=== PATIENT | male | born 1960 | race American Indian/Alaskan Native ===

== ENCOUNTER 2019-02-07 01:01 | Emergency (ER) | payer OTHER ==
[~2019-02-07] VITALS: Ht 154.9 cm; Wt 49.4 kg
[2019-02-07 01:11] VITALS: BP 111/61
--- NOTE | 2019-02-07 01:33 | ER.PDOC ---
General Chief Complaint: Requesting Medical Care Stated Complaint: CATH CHANGE Time seen by MD: 01:29 Source: patient Exam Limitations: no limitations History of Present Illness Initial Comments For Wilson catheter change Associated Symptoms: Retention Sexual History: Non-contributory Allergies: Coded Allergies: No Known Allergies (Unverified , 08/29/13) Home Meds No Active Prescriptions or Reported Meds Past Medical History Medical History: other Surgical History: no surgical history Social History Drug Use: none Review of Systems Constitutional: no symptoms reported Respiratory: no symptoms reported Cardiovascular: no symptoms reported Gastrointestinal: no symptoms reported Genitourinary: see HPI All Other Systems: Reviewed and Negative Physical Exam General Appearance: No Apparent Distress, WD/WN Neck: nml inspection, non-tender Cardiovascular/Respiratory: Regular Rate, Rhythm, No M/R/G, Normal Peripheral Pulses, No JVD, Normal Breath Sounds, No Respiratory Distress Abdomen: Normal Bowel Sounds, Non Tender, Soft, No Organomegaly, No Pulsatile Mass Back: nml inspection Extremities: Normal Range of Motion, Non-Tender, Normal Inspection, No Pedal Edema, No Calf Tenderness, Normal Capillary Refill 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 It was changed 2 weeks ago. Still too early to change it. Course Sepsis Screening Results: Posi: POSITIVE SEPSIS RISK Duration or Total Time Spent w: 10 Sepsis Infection Criteria Pres: None Departure Time of Disposition: 01:32 Disposition: 01 HOME, SELF-CARE Impression: Primary Impression: Urinary retention Condition: Stable Referrals: PCP,UNKNOWN (PCP) PRIMARY CARE PROVIDER Additional Instructions: F/U with your Urologist as needed Scripts No Active Prescriptions or Reported Meds Duration or Time Spent with Pa: 20 mins DEMETRI ARCOS MD Feb 07, 2019 01:33
== END 2019-02-07 01:41 | disposition home or self-care (01) ==
LOC: ER 01:01
DX: R33.9 Retention of urine, unspecified (principal)
CPT/HCPCS: 99281

== ENCOUNTER 2019-02-09 22:26 | Emergency (ER) | payer OTHER ==
[~2019-02-09] VITALS: Ht 154.9 cm; Wt 49.4 kg
[2019-02-09 22:38] VITALS: BP 126/87
--- NOTE | 2019-02-09 22:38 | NUR ---
ARRIVAL PATIENT PRESENTS STATING THAT HIS MCKEON CATHETER IS NOT DRAINING. STATES THAT HE HAS NOT HAD ANY OUTPUT FOR OVER 6 HOURS. REPORTS LOWER ABDOMINAL PAIN, PRESSURE. STATES THAT HE TOOK IBUPROFEN ~7-8PM AND HAS NOT HAD ANY PAIN RELIEF. AMBULATORY WITH STEADY GAIT. VSS. MD JOSSELYN NOTIFIED.
[2019-02-09 23:30] VITALS: BP 114/77
--- NOTE | 2019-02-09 23:51 | ER.PDOC ---
General Chief Complaint: Requesting Medical Care Stated Complaint: MALE Time seen by MD: 23:47 Source: patient Exam Limitations: no limitations History of Present Illness Initial Comments Wilson Catheter not draining. Timing/Duration: this evening Severity/Quality: moderate Associated Symptoms: Retention Allergies: Coded Allergies: No Known Allergies (Unverified , 08/29/13) Home Meds No Active Prescriptions or Reported Meds Past Medical History Medical History: COPD Surgical History: tonsillectomy Social History Drug Use: none Review of Systems Constitutional: no symptoms reported Respiratory: no symptoms reported Cardiovascular: no symptoms reported Gastrointestinal: no symptoms reported Genitourinary: see HPI All Other Systems: Reviewed and Negative Physical Exam General Appearance: No Apparent Distress, WD/WN Neck: nml inspection, non-tender Cardiovascular/Respiratory: Regular Rate, Rhythm, No M/R/G, Normal Peripheral Pulses, No JVD, Normal Breath Sounds, No Respiratory Distress Abdomen: Normal Bowel Sounds, Non Tender, Soft, No Organomegaly, No Pulsatile Mass Male Genitals: Other (suprapubic fullness) Extremities: Normal Range of Motion, Non-Tender, Normal Inspection, No Pedal Edema, No Calf Tenderness, Normal Capillary Refill 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 Scripts No Active Prescriptions or Reported Meds Duration or Time Spent with Pa: 30 mins DEMETRI ARCOS MD Feb 09, 2019 23:51
[2019-02-10 00:30] VITALS: BP 103/77
== END 2019-02-10 00:33 | disposition home or self-care (01) ==
LOC: ER 22:26
DX: R33.9 Retention of urine, unspecified (principal); J44.9 Chronic obstructive pulmonary disease, unspecified; Z90.89 Acquired absence of other organs
CPT/HCPCS: 51702; 99284; 99285

== ENCOUNTER 2019-03-24 15:13 | Emergency (ER) | payer OTHER ==
[~2019-03-24] VITALS: Ht 154.9 cm; Wt 49.4 kg
[2019-03-24 15:38] VITALS: BP 103/72
[2019-03-24] MEDS ORDERED: DUO 0.5-3(2.5) MG/3 ML IH STA (16:02)
--- NOTE | 2019-03-24 16:20 | ER.PDOC ---
General Chief Complaint: Trunk Pain/Injury Stated Complaint: MALE Time seen by MD: 15:50 Source: patient Exam Limitations: no limitations History of Present Illness Initial Comments about 7-10 days ago, pt hit L posterior ribs on post attached to car frame while getting into a car. Was sore for a few days, hurt some with deep breaths. 5 days ago pt had hard coughing spell, and felt a 'pop' in same area of L lower/posterior ribs. Hurts with breathing, pain has not gone away. Denies fever, swelling in legs or feet, productive sputum. Context: blow Location of pain/injury: mid back Quality/Severity: moderate Allergies: Coded Allergies: No Known Allergies (Unverified , 08/29/13) Home Meds No Active Prescriptions or Reported Meds Past Medical History Medical History: COPD Surgical History: no surgical history Social History Alcohol Use: none Drug Use: none Results/Orders Results/Orders Orders - ANNE CIFUENTES DO Xr Chest 2v (03/24/19 16:00) Ipratropium/Albuterol Sulfate (Duo 0.5-3 (03/24/19 16:02) Levofloxacin (Levaquin) (03/24/19 16:57) Vital Signs Date Time Temp Pulse Resp B/P (MAP) Pulse Ox O2 Delivery O2 Flow Rate FiO2 03/24/19 16:59 97.8 115 12 103/72 (82) 90 Room Air 03/24/19 16:29 90 18 93 03/24/19 16:27 90 18 91 03/24/19 15:38 97.8 115 12 103/72 (82) 90 Room Air 03/24/19 15:31 97.8 115 12 90 Administered Medications Medications (Trade) Dose Ordered Sig/Emily Route PRN Reason Start Time Stop Time Status Last Admin Dose Admin Albuterol/ Ipratropium (Duo 0.5-3(2.5) Mg/3 ml) 3 ml STAT STAT IH 03/24/19 16:02 03/24/19 16:04 DC 03/24/19 16:25 3 ML Progress Progress CXR shows no pneumothorax, but does show a RLL infiltrate. Pt not c/o pain on this side, but may contribute to his dyspnea. Given neb x1 here, no hypoxia. Will start antibiotics, told to return if his symptoms worsen. Departure Time of Disposition: 16:30 Disposition: 01 HOME, SELF-CARE Impression: Primary Impression: RLL pneumonia Qualified Codes: J18.9 - Pneumonia, unspecified organism Additional Impression: Contusion of rib on left side Qualified Codes: S20.212A - Contusion of left front wall of thorax, initial encounter Condition: Stable Referrals: MISSAEL SANTOS (PCP) PRIMARY CARE PROVIDER Scripts No Active Prescriptions or Reported Meds Duration or Time Spent with Pa: 20 ANNE CIFUENTES DO Mar 24, 2019 16:20
--- NOTE | 2019-03-24 16:36 | DIREP ---
PROCEDURE:CHEST 2 VIEWS COMPARISON:[facility], CR, XRAY CHEST 2 VWS, 07/23/2016, 01:24 PM. INDICATIONS:L rib injury, dyspnea FINDINGS: LUNGS/PLEURA:Hyperinflated lung kwon chronic interstitial changes. Right lower lobe infiltrate. Left basilar atelectasis versus evolving infiltrate. No pneumothorax. Stable appearance of 5 mm left mid lung field probable calcified granuloma. VASCULATURE:Unremarkable pulmonary vasculature. Calcified aortic arch. CARDIAC:Normal. No cardiac silhouette abnormality or cardiomegaly. MEDIASTINUM:Normal. No visible mass or adenopathy. BONES:Degenerative change without evidence of acute osseus abnormality. OTHER:Negative. CONCLUSION: 1. Right lower lobe infiltrate on background of chronic lung disease. Dictated by: Melvin Fuentes MD on 03/24/2019 at 04:34 PM
[2019-03-24] MEDS ORDERED: LEVAQUIN PO STA (16:57)
[2019-03-24 16:59] VITALS: BP 103/72
== END 2019-03-24 17:02 | disposition home or self-care (01) ==
LOC: ER 15:13
DX: S20.212A Contusion of left front wall of thorax, initial encounter (principal); J18.1 Lobar pneumonia, unspecified organism; J44.0 Chronic obstructive pulmonary disease with (acute) lower respiratory infection; Z79.899 Other long term (current) drug therapy; X58.XXXA Exposure to other specified factors, initial encounter; Y93.89 Activity, other specified; Y92.89 Other specified places as the place of occurrence of the external cause; Y99.8 Other external cause status
CPT/HCPCS: 71046; 94640; 99284; J7620

== ENCOUNTER 2019-04-03 16:36 | Emergency (ER) | payer OTHER ==
[~2019-04-03] VITALS: Ht 154.9 cm; Wt 49.4 kg
[2019-04-03 17:21] VITALS: BP 120/85
--- NOTE | 2019-04-03 17:55 | ER.PDOC ---
General Chief Complaint: Requesting Medical Care Stated Complaint: MALE Time seen by MD: 17:50 Source: patient Exam Limitations: no limitations History of Present Illness Initial Comments Not able to urinate today. Patient normally self catheterize but catheter not going in today. Severity/Quality: moderate Associated Symptoms: Retention Sexual History: Non-contributory Allergies: Coded Allergies: No Known Allergies (Unverified , 08/29/13) Home Meds No Active Prescriptions or Reported Meds Past Medical History Medical History: COPD, other Surgical History: no surgical history Social History Alcohol Use: none Drug Use: none Review of Systems Constitutional: no symptoms reported Respiratory: no symptoms reported Cardiovascular: no symptoms reported Gastrointestinal: no symptoms reported Genitourinary: see HPI All Other Systems: Reviewed and Negative Physical Exam General Appearance: No Apparent Distress, WD/WN Neck: nml inspection, non-tender Cardiovascular/Respiratory: Regular Rate, Rhythm, No M/R/G, Normal Peripheral P ulses, No JVD, Normal Breath Sounds, No Respiratory Distress Abdomen: Normal Bowel Sounds, Soft, No Organomegaly, No Pulsatile Mass, Distended Bladder Back: nml inspection Extremities: Normal Range of Motion, Non-Tender, Normal Inspection, No Pedal Edema, No Calf Tenderness, Normal Capillary Refill 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 Patient feeling relieved. He will keep his Wilson Catheter in place until he follows up with his Urologist. Departure Time of Disposition: 18:15 Disposition: 01 HOME, SELF-CARE Impression: Primary Impression: Urinary retention Condition: Improved Referrals: MISSAEL SANTOS (PCP) PRIMARY CARE PROVIDER Additional Instructions: Follow up with Dr. Santos this week, call for appointment. Return to ED if any concerns. Scripts No Active Prescriptions or Reported Meds Duration or Time Spent with Pa: 30 mins DEMETRI ARCOS MD Apr 03, 2019 17:55
--- NOTE | 2019-04-03 18:07 | NUR ---
placed 20f coude catheter in pt without difficulty. drained 900cc yellow urine. juan to stay in place per EDP until pt can get in to see dr Escobar. pt given nstructions for catheter care and instructions to follow up with dr escobar.
[2019-04-03 18:23] VITALS: BP 118/85
== END 2019-04-03 18:23 | disposition home or self-care (01) ==
LOC: ER 16:36
DX: R33.9 Retention of urine, unspecified (principal); J44.9 Chronic obstructive pulmonary disease, unspecified
CPT/HCPCS: 51702; 99284

== ENCOUNTER 2019-07-09 20:16 | Emergency (ER) | payer OTHER ==
[~2019-07-09] VITALS: Ht 154.9 cm; Wt 45.8 kg
--- NOTE | 2019-07-09 20:16 | NUR ---
Note undone in EDM - 07/09/19 at 2142 by [email or web address] Arrival Patient arrived to ED room 1 via wheelchair. Patient was transferred to room from [facility]. Patient was stating she has been seizing, her abdomen hurts, and she cannot feel her arms. Patient continues to state that she is on her menstrual cycle and has lost alot of blood. Patient appears anxious. Patient placed on bedside and adult day care worker. While obtaining a blood pressure, patients hand began to contract. Dr. Renee tomas of patient arrival and assessment.
[2019-07-09 20:33] VITALS: BP 116/86
--- NOTE | 2019-07-09 20:58 | ER.PDOC ---
General Chief Complaint: Male Stated Complaint: MALE Time seen by MD: 20:52 Source: patient Exam Limitations: no limitations History of Present Illness Initial Comments pt c/o juan not draining onset this afternoon juan placed 1 month ago d/t enlarged prostate; he has not followed up with urology as scheduled Timing/Duration: this afternoon Severity/Quality: mild Associated Symptoms: Retention Sexual History: Non-contributory Allergies: Coded Allergies: No Known Allergies (Unverified , 08/29/13) Home Meds No Active Prescriptions or Reported Meds Past Medical History Medical History: COPD, other (BPH with outlet obstruction) Surgical History: no surgical history, other Social History Alcohol Use: occassionally Drug Use: none Review of Systems Constitutional: no symptoms reported EENTM: no symptoms reported Respiratory: no symptoms reported Cardiovascular: no symptoms reported Gastrointestinal: no symptoms reported Genitourinary: see HPI Musculoskeletal: no symptoms reported Skin: no symptoms reported Physical Exam General Appearance: No Apparent Distress, WD/WN Cardiovascular/Respiratory: Regular Rate, Rhythm Abdomen: Normal Bowel Sounds Male Genitals: Normal Genitalia Back: nml inspection Neurologic/Psychiatric: Alert, Normal Mood/Affect Skin: Normal Color, Warm/Dry Results/Orders Results/Orders Orders - RAOUL SOLITARIO DO Urinalysis (07/09/19 20:50) Dc Juan (07/09/19 20:50) Place Juan Catheter (07/09/19 20:50) Lidocaine Hcl (Lidocaine Viscous) (07/09/19 21:25) Urine Culture (07/09/19 22:15) Vital Signs Date Time Temp Pulse Resp B/P (MAP) Pulse Ox O2 Delivery O2 Flow Rate FiO2 07/09/19 20:33 98.1 105 18 90 07/09/19 20:33 98.1 105 18 Laboratory Tests Test 07/09/19 22:15 Urine Collection Type VOID Urine Color BROWN (YELLOW) H Urine Appearance CLOUDY (CLEAR) H Urine Bilirubin NEGATIVE MG/DL (NEGATIVE) Urine Ketones NEGATIVE (NEGATIVE) Urine Specific [place] 1.020 (1.005-1.035) Urine pH 5 (5.0-6.0) Urine Protein 30 mg/dL (NEGATIVE) H Urine Urobilinogen NORMAL (NEGATIVE) Urine Nitrate NEGATIVE (NEGATAIVE) Urine Leukocyte Esterase 500/uL 2+ (NEGATIVE) Urine Blood 250 4+ (NEGATIVE) H Urine RBC TNTC RBC/HPF (NONE SEEN) H Urine WBC TNTC WBC/HPF (0-2) H Urine Squamous Epithelial Cells NONE SEEN #/HPF (FEW) Urine Bacteria FEW (NONE SEEN) H Urine Hyaline Casts 0-1 (NONE SEEN) Urine Glucose NORMAL (NEGATIVE) Progress Progress Discussed with Dr. Swanson (covering Dr. Santos). He states when balloon has been inflated for extended periods of time it will create a spoon/lipping effect. The only way to get it out is to simply pull with force then immediately replace the juan. Nursing instilled viscious lidocaine and after it had taken effect was able to dislodge the juan which was somewhat stiff. They were able to replace the juan with a new one which began to immediately drain 500 cc urine. UA has TNTC WBCs, negative nitrates--we will treat proactively since juan has been placed >30 days. Consult/PCP Time Consult/PCP Called: 21:16 Consult/PCP: Tanja ESCUDERO Reason/Comments: discussed possible transfer #2 Time Consult/PCP Called: 21:23 Consult/PCP: Dr. Swanson Reason/Comments: discussed issue/treatment (see progress) Departure Time of Disposition: 22:37 Disposition: 01 HOME, SELF-CARE Impression: Primary Impression: Urinary obstruction Additional Impression: Malfunction of Juan catheter Condition: Improved Patient Instructions: Juan Catheter Care, Adult Referrals: MISSAEL SANTOS (PCP) PRIMARY CARE PROVIDER Additional Instructions: Follow up with Dr. Santos next week. Return to ER for recurrent problems. Scripts No Active Prescriptions or Reported Meds Duration or Time Spent with Pa: 25 min Problem Qualifiers Additional Impression: Malfunction of Juan catheter Encounter type: initial encounter Qualified Codes: T83.011A - Breakdown (mechanical) of indwelling urethral catheter, initial encounter RAOUL SOLITARIO DO Jul 09, 2019 20:58
--- NOTE | 2019-07-09 21:09 | NUR ---
CATHETER REMOVAL ATTEMPTED TO REMOVE CATHETER PER ORDER BY DR. SOLITARIO. DEFLATED BALLOON, HAD MINIMAL FLUID RETURN, ATTEMPTED AGAIN x 5 TIMES, MINIMAL FLUID RETURNED ESTIMATE 2 MLS TOTAL. PROCEEDED WITH REMOVEING CATHETER, MET NO RESISTANCE UNTIL NEAR THE EXIT OF THE URETHRA AT THE END OF THE PENIS. STOPPED AND ASKED DR. SOLITARIO TO COME INTO ROOM AND ASSESS. ATTEMTED AGAIN WITH DR. SOLITARIO AT BEDSIDE, GREAT RESISTANCE MET WITH THE PATIENT EXPRESSING PAIN. DR. SOLITARIO TO CONSULT WITH DR. SANTOS.
[2019-07-09] MEDS ORDERED: LIDOCAINE VISCOUS ONE (21:25)
--- NOTE | 2019-07-09 21:45 | NUR ---
PER VERBAL ORDER FROM DR. SOLITARIO, INSERTED VISCOUS LIDOCAINE AROUND EXISTING MCKENO CATHETER INTO URETHRAL OPENING. PATIENT TOLATERED WITH MILD DISCOMFORT.
--- NOTE | 2019-07-09 21:50 | NUR ---
REMOVED EXISTING MCKEON CATHETER. SCANT BLOOD NOTED UPON REMOVAL. PREPARED PATIENT FOR INSERTION OF NEW CATHETER FOLLOWING STERILE PROTOCOL. PATIENT TOLERATED WELL AND EXPRESSED RELIEF WHEN BLADDER BEGAN DRAINING. WILL OBTAIN URINE SPECIMEN ORDERED.
[2019-07-09 22:21] LABS: BILIRUBIN,URINE NEGATIVE (NEGATIVE); UROBILINOGEN,URINE NORMAL (NEGATIVE)
[2019-07-09 22:28] LABS: APPEARANCE,URINE CLOUDY (CLEAR); UA COLOR BROWN (YELLOW)
[2019-07-09] MEDS ORDERED: ROCEPHIN IM STA (22:36)
[2019-07-09] MEDS ORDERED: ROCEPHIN ONE (22:47)
[2019-07-09] MEDS ORDERED: LIDOCAINE 1% VIAL ONE (22:47)
--- NOTE | 2019-07-09 23:28 | NUR ---
Mireya care performed before discharge. Appproximately 800ml of urine noted. Leg bag applied. Patient verbalizes understanding of how to perform pericare. Blood noted at urethral opening. Dr. Duran aware. No new orders received. Blood to be expected after removal of original catheter. Patient ambulatory at discharge with no distress noted. Patient states he feels relief after catheter change
== END 2019-07-09 23:28 | disposition home or self-care (01) ==
LOC: ER 20:16
DX: T83.011A Breakdown (mechanical) of indwelling urethral catheter, initial encounter (principal); R33.8 Other retention of urine; N40.1 Benign prostatic hyperplasia with lower urinary tract symptoms; N13.8 Other obstructive and reflux uropathy; J44.9 Chronic obstructive pulmonary disease, unspecified; Y84.6 Urinary catheterization as the cause of abnormal reaction of the patient, or of later complication, without mention of misadventure at the time of the procedure; Y73.8 Miscellaneous gastroenterology and urology devices associated with adverse incidents, not elsewhere classified
CPT/HCPCS: 51702; 81000; 87077; 87086; 87186; 96372; 99284; J0696; J2001; J3490

== ENCOUNTER 2019-11-08 21:36 | Inpatient (IN) | payer OTHER ==
[~2019-11-08] VITALS: Ht 154.9 cm; Wt 47.6 kg
[2019-11-08 21:40] VITALS: BP 141/74
[2019-11-08] MEDS ORDERED: SOLU-MEDROL IV STA (21:57)
[2019-11-08] MEDS ORDERED: DUO 0.5-3(2.5) MG/3 ML IH STA (21:57)
--- NOTE | 2019-11-08 21:58 | ER.PDOC ---
General Chief Complaint: Dyspnea/Respdistress Stated Complaint: COPD Time seen by MD: 21:51 Source: patient Exam Limitations: clinical condition History of Present Illness Initial Comments Patient c/o gradually worsening SOB x 1 week. Denies fever. + cough productive of sputum Timing/Duration: 1 week Severity: moderate, severe Activities at Onset: none Prior Episodes/Possible Cause: frequent episodes, chronic episodes, smoke exposure (tobacco smoker) Associated Symptoms: cough, wheezing Prior symptoms/Treatment: Similar symptoms previous Allergies: Coded Allergies: No Known Allergies (Unverified , 08/29/13) Home Meds No Active Prescriptions or Reported Meds Past Medical History Medical History: COPD, other Surgical History: cholecystectomy Social History Smoking: cigarettes (heavy) Alcohol Use: none Drug Use: none Review of Systems Constitutional: no symptoms reported EENTM: no symptoms reported Respiratory: cough, shortness of breath, wheezing Cardiovascular: no symptoms reported Gastrointestinal: no symptoms reported Musculoskeletal: no symptoms reported Skin: no symptoms reported Psychiatric/Neurological: no symptoms reported Physical Exam General Appearance: Mild Distress (respiratory distress), Thin Respiratory: respiratory distress, decreased breath sounds, accessory muscle use, wheezing, other (room air saturation 72%) Cardiovascular: Regular Rate, Rhythm Gastrointestinal: Normal Bowel Sounds, Non Tender Extremities: Normal Inspection, No Pedal Edema, No Calf Tenderness Neurologic/Psychiatric: Alert, Normal Mood/Affect, Oriented x 3 Skin: Normal Color, Warm/Dry Results/Orders Results/Orders Orders - RAOUL SOLITARIO DO Arterial Blood Gas (11/08/19 21:55) Cbc With Auto Diff (11/08/19 21:55) Comprehensive Metabolic Panel (11/08/19 21:55) Creatine Kinase (11/08/19 21:55) Creatine Kinase Mb (11/08/19 21:55) Probnp B-Type Pulling Machine Operator (11/08/19 21:55) Troponin I (11/08/19 21:55) PT (11/08/19 21:55) Partial Thromboplastin Time. (11/08/19 21:55) Ekg-Routine (11/08/19 21:55) Rt Airway Inhalation Treatment (11/08/19 21:55) Xr Chest 1v (11/08/19 21:55) Rt O2 Per Hour (11/08/19 21:55) Saline Lock (11/08/19 21:55) Ipratropium/Albuterol Sulfate (Duo 0.5-3 (11/08/19 21:57) Methylprednisolone Sod Succ (Solu-Medrol (11/08/19 21:57) D-Dimer (11/08/19 22:01) Methylprednisolone Sod Succ (Solu-Medrol (11/08/19 22:04) Water For Injection,Sterile (Water) (11/08/19 22:04) Cta Chest (11/08/19 22:30) Vital Signs Date Time Temp Pulse Resp B/P (MAP) Pulse Ox O2 Delivery O2 Flow Rate FiO2 11/08/19 22:39 109 18 100 11/08/19 22:36 114 20 100 11/08/19 22:22 111 18 162/88 (112) 100 Nasal Canula 2.00 11/08/19 21:40 98.3 125 18 78 11/08/19 21:40 98.3 125 18 11/08/19 21:40 98.3 125 18 141/74 (96) 78 Room Air Administered Medications Medications (Trade) Dose Ordered Sig/Emily Route PRN Reason Start Time Stop Time Status Last Admin Dose Admin Albuterol/ Ipratropium (Duo 0.5-3(2.5) Mg/3 ml) 3 ml STAT STAT IH 11/08/19 21:57 11/08/19 21:58 UNV 11/08/19 22:34 3 ML Methylprednisolone Sodium Succinate (Solu-Medrol) 125 mg STAT STAT IV 11/08/19 21:57 11/08/19 21:58 UNV 11/08/19 22:10 125 MG Laboratory Tests Test 11/08/19 22:03 11/08/19 22:15 White Blood Count 8.6 10^3/uL (4.5-11.0) Red Blood Count 4.81 10^6/uL (4.50-5.90) Hemoglobin 14.7 g/dL (13.9-16.3) Hematocrit 46.3 % (37.0-53.0) Mean Corpuscular Volume 96.3 fL (78-100) Mean Corpuscular Hemoglobin 30.6 pg (26-34) Mean Corpuscular Hemoglobin Concent 31.7 g/dL (33-36.5) L Red Cell Distribution Width 13.0 % (11.5-14.5) Platelet Count 194 10^3/uL (150-400) Mean Platelet Volume 9.5 fL (7.8-11.0) Neutrophils (%) (Auto) 82.3 % (41.0-85.0) Lymphocytes (%) (Auto) 9.6 % (24.0-44.0) L Monocytes (%) (Auto) 7.4 % (5.0-12.0) Neutrophils # (Auto) 7.0 10^3/uL (1.8-7.7) Lymphocytes # (Auto) 0.82 10^3/uL1 (1.0-4.8) L Monocytes # (Auto) 0.6 10^3/uL (0.3-0.8) Absolute Immature Granulocyte (auto 0.01 10^3 u/L (0-2) Absolute Eosinophils (auto) 0.0 10^3/uL (0.0-0.2) Immature Granulocytes % 0.10 % (0.00-0.50) Eosinophils % 0.4 % (0.0-5.0) Basophils % 0.2 % (0.0-0.2) Basophils # 0.0 10^3/uL (0.0-0.1) Prothrombin Time 11.5 SEC (9.3-11.3) H Prothrombin Time INR (Non-Therap) 1.1 Activated Partial Thromboplast Time 24.2 SEC (24.67-30.72) D-Dimer 0.85 mg/L (0.19-0.49) *H Sodium Level 134 mmol/L (132-145) Potassium Level 4.5 mmol/L (3.6-5.2) Chloride Level 98.0 mmol/L (96-109) Carbon Dioxide Level 31.8 mmol/L (20.0-32) Anion Gap 8.7 Blood Urea Nitrogen 10 mg/dL (7-18) Creatinine 0.90 mg/dL (0.59-1.40) Estimated GFR () 105.2 (>/=60) Est GFR (CKD-EPI)(Non-Afr Singaporean) 87.0 (>/=60) BUN/Creatinine Ratio 11.0 Glucose Level 156 mg/dL (70-110) H Calcium Level 9.0 mg/dL (8.4-10.5) Total Bilirubin 0.6 mg/dL (0.2-1.0) Aspartate Amino Transferase (AST) 26 U/L (0-35) Alanine Aminotransferase (ALT) 24 U/L (12-78) Alkaline Phosphatase 91 U/L (50-136) Total Creatine Kinase 95 U/L (39-308) Creatine Kinase MB 2.1 ng/mL (0.5-3.6) Troponin I 0.04 ng/mL (0.00-0.05) Pro-B-Type Natriuretic Peptide 8459 pg/mL (0-125) H Total Protein 6.5 g/dL (6.4-8.2) Albumin 2.9 g/dL (3.4-5.0) L Globulin 3.6 Blood Gas Sample Site LEFT RADIAL ARTERY Blood pH 7.289 (7.350-7.450) Blood Gas PCO2 69.3 mmHg (35.0-45.0) H Blood Gas PO2 123.8 mmHg (80.0-100.0) H Blood Gas HCO3 32.5 mmol/L (22.0-26.0) H Blood Gas Base Excess 3.5 mmol/L (-2.0-2.0) H Anderson Test POSITIVE Arterial Blood Oxygen Saturation 97.9 % (94.0-97.00) H Deoxyhemoglobin 2.0 % (0.0-5.0) Carboxyhemoglobin 3.6 % (0.0-3.9) Methemoglobin 0.3 % (0.00-5.0) Total Hemoglobin 15.3 % (12.0-17.8) Total Oxygen Concentration 20.4 % (13.5-17.5) H FiO2 24 % (20-101) Total Carbon Dioxide 34.6 mmol/L (23-27) H Progress Progress Patient's room air saturation is 70%. He corrects almost immediately with NC oxygen at 1L. ABG: pH 7.289, pCO2 69.3, pO2 123.8 (on 2L), HCO3 32.5 Ddimer elevated 0.85, CTA chest ordered--no PE but they do see bibasilar nodular opacities L>R suspicious for evolving multifocal pneumonia. BNP 8459 EKG/XRAY/CT/US EKG Comments: sinus tachycardia 114 XRAY: chest (no infiltrate seen) Consult/PCP Time Consult/PCP Called: 23:43 Consult/PCP: Dr. Gallego Reason/Comments: admit Departure Time of Disposition: 23:50 Disposition: 09 ADMITTED INPATIENT Impression: Primary Impression: Chronic obstructive pulmonary disease Additional Impressions: Hypoxia Pneumonia Condition: Improved Referrals: MISSAEL SANTOS (PCP) PRIMARY CARE PROVIDER Scripts No Active Prescriptions or Reported Meds Duration or Time Spent with Pa: 30 Problem Qualifiers Primary Impression: Chronic obstructive pulmonary disease COPD type: COPD with acute exacerbation Qualified Codes: J44.1 - Chronic obstructive pulmonary disease with (acute) exacerbation Additional Impressions: Pneumonia Pneumonia type: due to unspecified organism Laterality: bilateral Lung location: lower lobe of lung Qualified Codes: J18.9 - Pneumonia, unspecified organism RAOUL SOLITARIO DO Nov 08, 2019 21:57
[2019-11-08] MEDS ORDERED: SOLU-MEDROL ONE (22:04)
[2019-11-08] MEDS ORDERED: WATER 20 ML ONE (22:04)
[2019-11-08 22:08] LABS: BASOPHIL % 0.2 % (0.0-0.2); EOSINOPHIL % 0.4 % (0.0-5.0); LYMPHOCYTES # 0.82 10^3/uL1 (1.0-4.8); LYMPHOCYTES % 9.6 % (24.0-44.0); MEAN CORP HGB 30.6 pg (26-34); MONOCYTES # 0.6 10^3/uL (0.3-0.8); MONOCYTES % 7.4 % (5.0-12.0); NEUTROPHILS % 82.3 % (41.0-85.0); PLATELET COUNT 194 10^3/uL (150-400)
--- NOTE | 2019-11-08 22:09 | PCM.EKG ---
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1960 Requested By: RAOUL DURAN Order Number: [id number] Reading MD: Jacquelin Duran Measurements Intervals [place] Rate: 114 P: 88 IA: 125 QRS: 268 QRSD: 91 T: 77 QT: 332 QTc: 458 Interpretive Statements Sinus tachycardia Consider right atrial enlargement LAD, consider left anterior fascicular block Right ventricular hypertrophy Nonspecific T abnrm, anterolateral leads Compared to ECG 10/03/2018 20:08:37 Right ventricular hypertrophy now present Sinus rhythm no longer present Electronically Signed On 11-11-2019 7:01:23 CDT by Jacquelin Duran Please click the below link to view image of tracing.
--- NOTE | 2019-11-08 22:18 | DIREP ---
PROCEDURE:CHEST 1 VIEW COMPARISON:[facility], CR, XRAY CHEST 2 VWS, 03/24/2019, 04:12 PM. [facility], CR, XRAY CHEST 2 VWS, 07/23/2016, 01:24 PM. INDICATIONS:dyspnea FINDINGS: LUNGS/PLEURA:Hyperinflated lung kwon chronic interstitial changes. No focal consolidation, pleural effusion, or pneumothorax. VASCULATURE:Normal. Unremarkable pulmonary vasculature. CARDIAC:Normal. No cardiac silhouette abnormality or cardiomegaly. MEDIASTINUM:Normal. No visible mass or adenopathy. BONES:Mild thoracic levoscoliosis. Degenerative change without acute osseus abnormality. OTHER:Negative. CONCLUSION: 1. No acute cardiopulmonary process. 2. Stable changes related to COPD/emphysema. Dictated by: Melvin Fuentes MD on 11/08/2019 at 10:16 PM
[2019-11-08 22:22] VITALS: BP 162/88
[2019-11-08 22:35] LABS: CARBON DIOXIDE 31.8 mmol/L (20.0-32)
[2019-11-08 23:02] LABS: ABG PCO2 69.3 mmHg (35.0-45.0); ABG PH 7.289 (7.350-7.450); BE(B) 3.5 mmol/L (-2.0-2.0); HCO3act 32.5 mmol/L (22.0-26.0); pO2 123.8 mmHg (80.0-100.0)
--- NOTE | 2019-11-08 23:35 | DIREP ---
PROCEDURE:CTA CHEST COMPARISON:None. INDICATIONS:pe ddimer elevated TECHNIQUE:Post contrast axial images through the chest with multiplanar MIP/3D reconstructions. FINDINGS: PULMONARY ARTERIES:No filling defect identified. LUNGS/PLEURA:Mild upper lobe predominant emphysematous change. Bibasilar nodular opacities, left greater than right. Faint nodular opacities are identified within the posterior right apex and medial right lower lobe. Findings could indicate evolving multifocal pneumonia. No pleural effusion or pneumothorax. CARDIAC:Heart size within normal limits. No pericardial effusion. THYROID:Within normal limits, to the extent visualized. THORACIC AORTA:No aneurysmal dilatation or evidence of dissection. MEDIASTINUM:Enlarged sub carinal, peritracheal, and AP window nodes. The largest measures 1.2 cm in the AP window. CHEST WALL:No mass or axillary adenopathy. UPPER ABDOMEN:Status post cholecystectomy. Remainder of the visualized upper abdominal structures are grossly unremarkable. BONES:Degenerative change without evidence of acute osseus abnormality. OTHER:No additional findings. CONCLUSION: 1. No evidence of pulmonary embolism. 2. Diffuse nodular opacities, most pronounced within the left lower lobe. Findings concerning for evolving multifocal pneumonia. Continued follow-up is recommended to document resolution or progression. 3. Enlarged mediastinal lymph nodes, possibly reactive. 4. Emphysematous change. 5. Additional findings as described. Dictated by: Melvin Fuentes MD on 11/08/2019 at 11:27 PM
[2019-11-08] MEDS ORDERED: ROCEPHIN 2,000 MG in NS 100ML 100 ML IV STA (23:42)
[2019-11-08] MEDS ORDERED: ROCEPHIN ONE (23:45)
[2019-11-08] MEDS ORDERED: NS 100ML 100 ML IV ONE (23:45)
[2019-11-09 00:10] VITALS: BP 115/73
[2019-11-09] MEDS ORDERED: NICOTINE 21MG PATCH TD SCH (00:30)
[2019-11-09 01:06] VITALS: BP 111/75
[2019-11-09] MEDS: DUO 0.5-3(2.5) MG/3 ML IH SCH ×6 (01:48→21:17)
[2019-11-09 05:19] VITALS: BP 114/80
[2019-11-09] MEDS: SOLU-MEDROL IV SCH ×3 (06:04→21:39)
[2019-11-09 10:15] VITALS: BP 113/76
[2019-11-09] MEDS ORDERED: GENASYME PO ONE (15:30)
[2019-11-09 16:00] VITALS: BP 103/65
--- NOTE | 2019-11-09 17:28 | PCM.HP ---
History of Present Illness Reason for Visit: (1) Shortness of breath ICD Code: R06.02 - Shortness of breath SNOMED: 620423307 Was this Problem Present on Ad: Yes-DX present @time ofIP Hx of Present Illness Mr. Jere Perales is a very pleasant 59 y/o M with PMHx of long time smoking hx, COPD not previously on home O2, and chronic indwelling juan catheter due to BPH. He presents with one week of progressive SOB and wheezing. He has had no fever, cough, chest pain or sick contacts. He denies passing out or light headedness. He denies leg swelling or orthopnea. Past Medical History PMH-Pulmonary: (1) Chronic obstructive pulmonary disease Status: Chronic ICD Code: J44.9 - Chronic obstructive pulmonary disease, unspecified SNOMED: 54667451 PMH-Renal/: (1) Chronic indwelling Juan catheter Status: Chronic ICD Code: Z97.8 - Presence of other specified devices SNOMED: 026098343 (2) Urinary retention Status: Chronic ICD Code: R33.9 - Retention of urine, unspecified SNOMED: 581897248 Past Surgical History: (1) Hx of cholecystectomy ICD Code: Z90.49 - Acquired absence of other specified parts of digestive tract SNOMED: 38710636, 010058835 Past Family History: (1) Family history of cancer ICD Code: Z80.9 - Family history of malignant neoplasm, unspecified SNOMED: 573267077 Past Social History Past Social Hx:Smoke: (1) Smoker Status: Chronic Smoke: 1 pack per day ICD Code: F17.200 - Nicotine dependence, unspecified, uncomplicated SNOMED: 71273281 Travel History [place] RISK:Travel to/contact w: No Review of Systems Constitutional: No: Fever, Chills, Sweats, Weakness, Malaise Eyes: No: Pain, Conjunctivae inflammation ENT: No: Ear pain, Nose discharge, Nose congestion, Throat pain Respiratory: Shortness of breath, SOB with excertion, Wheezing; No: Cough, Dry, Hemoptysis, Pleuritic Pain, Sputum Cardiovascular: No: Chest Pain, Palpitations, Orthopnea, Paroxysmal Noc. Dyspnea, Edema, Lt Headedness Gastrointestinal: No: Nausea, Vomiting, Abdominal Pain, Diarrhea, Constipation, Melena, Hematochezia Genitourinary: No Dysuria, No Frequency, No Incontinence, No Hematuria; Retention Musculoskeletal: No: neck pain, arm pain, back pain, leg pain Skin: No: Rash, Lesions, Jaundice, Bruising Neurological: No: Weakness, Numbness, Incoordination, Change in speech, Confusion, Seizures Allergies: Coded Allergies: No Known Allergies (Unverified , 08/29/13) No Active Prescriptions or Reported Meds VTE VTE Risk Total Score: 3 VTE Risk Score VTE Risk: Score 0-1 = Low Risk (Aggressive mobilization; early ambulation; no VTE prophylaxis required) Score 2: Moderate Risk (Intermittent/Pneumatic Compression Device OR Lovenox/Heparin/Coumadin) Score 3-4: High Risk (Intermittent/Pneumatic Compression Device AND Lovenox/Heparin/Coumadin) Score > or =5: Highest Risk (Intermittent/Pneumatic Compression Device AND Lovenox/Heparin/Coumadin) Antico:Hep/LMWH/Coum/Xarelto: Yes Mechanical device ordered: Yes VTE VTE Present on Admission: No Currently receiving anticoagul: Yes VTE Risk Total Score: 3 Antico:Hep/LMWH/Coum/Xarelto: Yes Mechanical device ordered: Yes Exam Vital Signs Vital Signs Date Time Temp Pulse Resp B/P (MAP) Pulse Ox O2 Delivery O2 Flow Rate FiO2 11/09/19 17:14 104 18 94 11/09/19 10:15 98.1 113/76 (88) Nasal Canula 2.00 11/09/19 08:49 28 General Appearance: Alert, Oriented X3, Cooperative, No acute distress HEENT: Atraumatic, PERRLA, EOMI Respiratory: Other (nonlabored on 2L but expiratory wheezing t/o BL lungs ) Cardiovascular: Regular rate, Normal S1, Normal S2 Abdominal: Normal bowel sounds, No tenderness, No hepatospenomegaly Extremities: No cyanosis, No edema, Normal pulses, No tenderness/swelling Skin: No rash, No lesions Neuro: Normal speech, Strength at 5/5 X4 ext, Normal tone, Sensation intact, Cranial nerves 3-12 NL Psych/Mental Status: Mental status NL, Mood NL Assessment/Plan Assessment/Plan Assessment/Plan 1. Acute respiratory failure with hypoxia and hypercapnia - Wean O2 as able, given nml mentation with PCO2 of 69 suspect chronic retainer. Repeat gas in am. Anticipate home o2 needs. 2. COPD exacerbation - d/t smoking + CAP - solumedrol 60mg IV q8h, duonebs q4h, monitor continuous pulse ox - will need steroid taper on dc and copd controller meds. will need pulm f/u. 3. Multifocal pna--history adn imaging not c/w COVID-19. Treat as CAP with rocephin/azithro and likely transition to levaquin on dc if doing well. No e/o sepsis. Given indolent presentation clinically could be atypical pna and would have him f/u with pulm to assure resolution. 4. Smoker--nicotine patch, smoking cessation 5. Chronic urinary retention with chronic indwelling juan--no e/o infection, f/u with urology o/p as scheduled VTE--lovenox FC, d/w patient Problems: (1) Acute respiratory failure with hypoxia and hypercarbia Status: Acute ICD Code: J96.01 - Acute respiratory failure with hypoxia; J96.02 - Acute respiratory failure with hypercapnia SNOMED: 526477683 (2) Multifocal pneumonia Status: Acute ICD Code: J18.9 - Pneumonia, unspecified organism SNOMED: 672395513 (3) COPD exacerbation Status: Acute COMPLICATION TYPE: W/ ACUTE EXACERBATION ICD Code: J44.1 - Chronic obstructive pulmonary disease with (acute) exacerbation SNOMED: 955266789 (4) Chronic indwelling Juan catheter Status: Chronic ICD Code: Z97.8 - Presence of other specified devices SNOMED: 024774338 (5) Urinary retention Status: Chronic ICD Code: R33.9 - Retention of urine, unspecified SNOMED: 893250604 (6) Tobacco abuse Status: Chronic ICD Code: Z72.0 - Tobacco use SNOMED: 51688955, 713054721 (7) Shortness of breath Status: Acute ICD Code: R06.02 - Shortness of breath SNOMED: 013006092 Patient History: Patient reports no known family medical history. MARCIA DEAN DO Nov 09, 2019 17:28
[2019-11-09] MEDS ORDERED: LOVENOX SQ SCH (17:30)
[2019-11-09] MEDS ORDERED: ZITHROMAX 500 MG in NS 250ML 250 ML IV SCH ×2 (17:30→21:00)
[2019-11-09 19:15] VITALS: BP 129/81
[2019-11-09] MEDS ORDERED: NS 500ML 500 ML IV ONE (21:34)
[2019-11-09] MEDS ORDERED: NS 250ML 250 ML IV ONE (21:34)
[2019-11-09] MEDS: LOVENOX SQ SCH (21:38)
[2019-11-09] MEDS: PEPCID PO SCH (21:39)
[2019-11-10 00:30] VITALS: BP 117/76
[2019-11-10] MEDS ORDERED: ROCEPHIN 1,000 MG in NS 100ML 100 ML IV SCH (00:30)
[2019-11-10] MEDS: DUO 0.5-3(2.5) MG/3 ML IH SCH ×6 (00:46→20:54)
[2019-11-10 04:28] VITALS: BP 103/69
[2019-11-10] MEDS: SOLU-MEDROL IV SCH ×3 (05:08→21:31)
[2019-11-10 05:39] LABS: ABG PCO2 59.4 mmHg (35.0-45.0); BE(B) 1.8 mmol/L (-2.0-2.0); HCO3act 29.6 mmol/L (22.0-26.0); pO2 115.5 mmHg (80.0-100.0)
[2019-11-10 06:02] LABS: MEAN CORP HGB 30.6 pg (26-34); RED CELL DISTRIBUTION WIDTH 12.8 % (11.5-14.5)
[2019-11-10 06:15] LABS: CALCIUM 8.4 mg/dL (8.4-10.5); CARBON DIOXIDE 35.3 mmol/L (20.0-32)
[2019-11-10 07:39] VITALS: BP 107/69
[2019-11-10] MEDS: PEPCID PO SCH ×2 (08:07→21:32)
[2019-11-10] MEDS: NICOTINE 21MG PATCH TD SCH (08:07)
[2019-11-10] MEDS: MOTRIN PO PRN ×2 (09:33→21:32)
[2019-11-10 12:07] VITALS: BP 108/71
--- NOTE | 2019-11-10 12:34 | PRM.PN ---
Progress Note Subjective Date: Nov 10, 2019 Time: 12:30 Physician Notes: Wheezing and SOB better. No fevers. No cough. Objective Review IO, Exams,& Results Problems Acute/Active Problems: (1) Hypoxia (2) Pneumonia Chronic Problems: (1) Chronic obstructive pulmonary disease Vital Signs Date Time Temp Pulse Resp B/P (MAP) Pulse Ox O2 Delivery O2 Flow Rate FiO2 11/10/19 12:07 97.9 94 22 108/71 (83) 94 Nasal Canula 2.00 11/10/19 08:25 28 Intake and Output 11/10/19 07:00 Intake Total 800 ml Output Total 2650 ml Balance -1850 ml Intake Oral 700 ml IV Total 100 ml Output Urine Total 2650 ml Laboratory Tests Test 11/08/19 22:03 11/08/19 22:15 11/10/19 05:24 White Blood Count 8.6 10^3/uL 11.3 10^3/uL Red Blood Count 4.81 10^6/uL 4.71 10^6/uL Hemoglobin 14.7 g/dL 14.4 g/dL Hematocrit 46.3 % 46.0 % Mean Corpuscular Volume 96.3 fL 97.7 fL Mean Corpuscular Hemoglobin 30.6 pg 30.6 pg Mean Corpuscular Hemoglobin Concent 31.7 g/dL 31.3 g/dL Red Cell Distribution Width 13.0 % 12.8 % Platelet Count 194 10^3/uL 205 10^3/uL Mean Platelet Volume 9.5 fL 9.6 fL Neutrophils (%) (Auto) 82.3 % Lymphocytes (%) (Auto) 9.6 % Monocytes (%) (Auto) 7.4 % Neutrophils # (Auto) 7.0 10^3/uL Lymphocytes # (Auto) 0.82 10^3/uL1 Monocytes # (Auto) 0.6 10^3/uL Absolute Immature Granulocyte (auto 0.01 10^3 u/L Absolute Eosinophils (auto) 0.0 10^3/uL Immature Granulocytes % 0.10 % Eosinophils % 0.4 % Basophils % 0.2 % Basophils # 0.0 10^3/uL Prothrombin Time 11.5 SEC Prothrombin Time INR (Non-Therap) 1.1 Activated Partial Thromboplast Time 24.2 SEC D-Dimer 0.85 mg/L Sodium Level 134 mmol/L 140 mmol/L Potassium Level 4.5 mmol/L 4.9 mmol/L Chloride Level 98.0 mmol/L 103.0 mmol/L Carbon Dioxide Level 31.8 mmol/L 35.3 mmol/L Anion Gap 8.7 6.6 Blood Urea Nitrogen 10 mg/dL 10 mg/dL Creatinine 0.90 mg/dL 0.76 mg/dL Estimated GFR () 105.2 127.9 Est GFR (CKD-EPI)(Non-Afr [place]ian) 87.0 105.7 BUN/Creatinine Ratio 11.0 13.0 Glucose Level 156 mg/dL 137 mg/dL Calcium Level 9.0 mg/dL 8.4 mg/dL Total Bilirubin 0.6 mg/dL Aspartate Amino Transf (AST/SGOT) 26 U/L Alanine Aminotransferase (ALT/SGPT) 24 U/L Alkaline Phosphatase 91 U/L Total Creatine Kinase 95 U/L Creatine Kinase MB 2.1 ng/mL Troponin I 0.04 ng/mL Pro-B-Type Natriuretic Peptide 8459 pg/mL Total Protein 6.5 g/dL Albumin 2.9 g/dL Globulin 3.6 Blood Gas Sample Site LEFT RADIAL ARTERY LEFT RADIAL ARTERY Blood Gas pH 7.289 7.310 Blood Gas PCO2 69.3 mmHg 59.4 mmHg Blood Gas PO2 123.8 mmHg 115.5 mmHg Blood Gas HCO3 32.5 mmol/L 29.6 mmol/L Blood Gas Base Excess 3.5 mmol/L 1.8 mmol/L Anderson Test POSITIVE POSITIVE Arterial Blood Oxygen Saturation 97.9 % 98.1 % Deoxyhemoglobin 2.0 % Carboxyhemoglobin 3.6 % 1.7 % Methemoglobin 0.3 % 0.5 % Total Hemoglobin 15.3 % 15.5 % Total Oxygen Concentration 20.4 % FiO2 24 % 28 % Total Carbon Dioxide 34.6 mmol/L 31.5 mmol/L Blood Gas Temperature 37.0 Oxygen Delivery Method (LAB) NASAL CANNULA Procalcitonin < 0.05 ng/mL Current Medications Medications (Trade) Dose Ordered Sig/Emily PRN Reason Start Time Stop Time Status Last Admin Albuterol/ Ipratropium (Duo 0.5-3(2.5) Mg/3 ml) 3 ml RTQ4 11/09/19 01:00 12/09/19 00:59 11/10/19 08:24 Azithromycin 500 mg/Sodium Chloride 250 ml @ 175 mls/hr Q24HRS 11/09/19 21:00 12/09/19 20:59 11/09/19 21:39 Ceftriaxone Sodium 1000 mg/ Sodium Chloride 100 ml @ 100 mls/hr Q24HRS 11/10/19 00:30 12/10/19 00:29 11/09/19 23:55 Enoxaparin Sodium (Lovenox) 40 mg Q24HRS 11/09/19 21:00 12/09/19 20:59 11/09/19 21:38 Famotidine (Pepcid) 20 mg BID 11/09/19 21:00 12/09/19 20:59 11/10/19 08:07 Ibuprofen (Motrin) 400 mg Q6HR PRN PAIN 1 - 3 11/10/19 09:30 12/10/19 09:29 11/10/19 09:33 Methylprednisolone Sodium Succinate (Solu-Medrol) 60 mg Q8HR 11/09/19 06:00 12/09/19 05:59 11/10/19 05:08 Nicotine (Nicotine 21mg Patch) 1 each DAILY 11/10/19 09:00 12/10/19 08:59 11/10/19 08:07 Orders - MARCIA DEAN E DO Resuscitation Status (11/09/19 02:31) Nicotine (Nicotine 21mg Patch) (11/10/19 09:00) Famotidine (Pepcid) (11/09/19 21:00) Cont.Pulse Oximetry Monitoring (11/09/19 17:15) Regular Diet (11/10/19 Breakfast) Enoxaparin Sodium (Lovenox) (11/09/19 21:00) Ibuprofen (Motrin) (11/10/19 09:30) Methylprednisolone Sod Succ (Solu-Medrol (11/10/19 14:00) Levofloxacin (Levaquin) (11/11/19 09:00) Heart: Regular rate, Normal S1, Normal S2 Abdomen: Normal bowel sounds, No tenderness, No hepatospenomegaly Lungs: Other (nonlabored on 2L but expiratory wheezing t/o BL lungs ) Changes in Treatment Decr solumedrol to 40, same freq. DC iv abx with neg procal, change to PO levaquin 500 daily. Assessment & Plan: Problems/Diagnosis: (1) Multifocal pneumonia ICD Code: J18.9 - Pneumonia, unspecified organism SNOMED: 696250693 Status: Acute (2) Acute respiratory failure with hypoxia and hypercarbia ICD Code: J96.01 - Acute respiratory failure with hypoxia; J96.02 - Acute respiratory failure with hypercapnia SNOMED: 177976761 Status: Acute (3) Chronic indwelling Juan catheter ICD Code: Z97.8 - Presence of other specified devices SNOMED: 090348838 Status: Chronic (4) COPD exacerbation ICD Code: J44.1 - Chronic obstructive pulmonary disease with (acute) exacerbation SNOMED: 655416195 Status: Acute (5) Urinary retention ICD Code: R33.9 - Retention of urine, unspecified SNOMED: 681846380 Status: Chronic (6) Shortness of breath ICD Code: R06.02 - Shortness of breath SNOMED: 455305604 Status: Acute (7) Tobacco abuse ICD Code: Z72.0 - Tobacco use SNOMED: 03777976, 452027095 Status: Chronic Assessment 1. Acute respiratory failure with hypoxia and hypercapnia - Wean O2 as able, given nml mentation with PCO2 of 69 suspect chronic retainer. Gas improved today but still with CO2 retention. Clinically stable without drowsiness or tachnypnea. - Anticipate home o2 needs, was set up by CM but will need to be sood pay. Suspect CHRF in this patient. 2. COPD exacerbation - d/t smoking + CAP - solumedrol 60mg IV q8h--> decr to 40q8, duonebs q4h, monitor continuous pulse ox - will need steroid taper on dc and copd controller meds. will need pulm f/u. - spoke at length today about the importance of smoking cessation 3. Multifocal pna--history and imaging not c/w COVID-19. Treat as CAP although clinically no significant si of infection, present on imaging: rocephin/azithro--> procal neg and no si of sepsis so transition to levaquin 500mg PO, total 7d abx course (stop date 11/14). Given indolent presentation clinically could be atypical pna vs possible early organizing pna? and would have him f/u with pulm for exam/imaging to assure resolution. 4. Smoker--nicotine patch, smoking cessation as above 5. Chronic urinary retention with chronic indwelling juan--no e/o infection, f/u with urology o/p as scheduled VTE--shahid CISSE, d/w patient Dispo: likely dc tomorrow Plan see above MARCIA DEAN DO Nov 10, 2019 12:34
[2019-11-10 16:42] VITALS: BP 102/66
[2019-11-10 19:40] VITALS: BP 103/69
[2019-11-10] MEDS: LOVENOX SQ SCH (21:33)
[2019-11-11 00:01] VITALS: BP 101/68
[2019-11-11] MEDS: DUO 0.5-3(2.5) MG/3 ML IH SCH ×6 (01:05→20:32)
[2019-11-11 04:54] VITALS: BP 137/65
[2019-11-11] MEDS: SOLU-MEDROL IV SCH ×3 (05:57→21:35)
[2019-11-11 08:03] VITALS: BP 107/69
--- NOTE | 2019-11-11 09:11 | PRM.PN ---
Subjective Subjective Date: Nov 11, 2019 Time: 09:11 Subjective Mr. Jere Perales is a very pleasant 59 y/o M with PMHx of long time smoking hx, COPD not previously on home O2, and chronic indwelling juan catheter due to BPH. He presents with one week of progressive SOB and wheezing. He has had no fever, cough, chest pain or sick contacts. He denies passing out or light headedness. He denies leg swelling or orthopnea. Overall Mr. Perales feels like he is improving he is having cravings for cigarettes but does have nicotine patches ordered for this. Discussed plan is for discharge with home oxygen tomorrow and continue oral Levaquin Patient History: Cancer VTE VTE Risk Total Score: 3 VTE Risk Score VTE Risk: Score 0-1 = Low Risk (Aggressive mobilization; early ambulation; no VTE prophylaxis required) Score 2: Moderate Risk (Intermittent/Pneumatic Compression Device OR Lovenox/Heparin/Coumadin) Score 3-4: High Risk (Intermittent/Pneumatic Compression Device AND Lovenox/Heparin/Coumadin) Score > or =5: Highest Risk (Intermittent/Pneumatic Compression Device AND Lovenox/Heparin/Coumadin) Antico:Hep/LMWH/Coum/Xarelto: Yes Mechanical device ordered: Yes Review of Systems Constitutional: No: Fever, Chills, Sweats, Weakness, Malaise Eyes: No: Pain, Conjunctivae inflammation ENT: No: Ear pain, Nose discharge, Nose congestion, Throat pain Respiratory: Shortness of breath, SOB with excertion, Wheezing; No: Cough, Dry, Hemoptysis, Pleuritic Pain, Sputum Cardiovascular: No: Chest Pain, Palpitations, Orthopnea, Paroxysmal Noc. Dyspnea, Edema, Lt Headedness Gastrointestinal: No: Nausea, Vomiting, Abdominal Pain, Diarrhea, Constipation, Melena, Hematochezia Genitourinary: No Dysuria, No Frequency, No Incontinence, No Hematuria; Retention Musculoskeletal: No: neck pain, arm pain, back pain, leg pain Skin: No: Rash, Lesions, Jaundice, Bruising Neurological: No: Weakness, Numbness, Incoordination, Change in speech, Confusion, Seizures Allergies: Coded Allergies: No Known Allergies (Unverified , 08/29/13) No Active Prescriptions or Reported Meds Objective Vitals and I/O Vital Sign - Last 24 Hours 11/10/19 11/10/19 11/10/19 11/10/19 12:07 13:02 13:02 16:04 Temp 97.9 Pulse 94 94 104 100 Resp 22 18 18 B/P (MAP) 108/71 (83) Pulse Ox 94 96 94 95 O2 Delivery Nasal Canula O2 Flow Rate 2.00 11/10/19 11/10/19 11/10/19 11/10/19 16:05 16:42 19:40 19:44 Temp 98.0 98.2 Pulse 104 100 106 Resp B/P (MAP) 102/66 (78) 103/69 (80) Pulse Ox 95 98 96 O2 Delivery Nasal Canula Nasal Canula Nasal Cannula O2 Flow Rate 2.00 2.00 2.00 11/10/19 11/10/19 11/10/19 11/10/19 20:55 20:56 20:56 23:22 Pulse 106 106 106 Resp Pulse Ox 93 93 94 O2 Delivery Nasal Cannula Nasal Cannula O2 Flow Rate 2.00 2.00 FiO2 28 11/11/19 11/11/19 11/11/19 11/11/19 00:01 01:06 01:07 04:54 Temp 98.2 98.0 Pulse 101 94 94 94 Resp 20 B/P (MAP) 101/68 (79) 137/65 (89) Pulse Ox 95 95 95 94 O2 Delivery Nasal Canula Nasal Canula O2 Flow Rate 2.00 2.00 11/11/19 11/11/19 11/11/19 11/11/19 05:47 05:49 08:03 08:04 Temp 98.5 Pulse 101 101 105 Resp B/P (MAP) 107/69 (82) Pulse Ox 94 94 93 O2 Delivery Nasal Canula Nasal Cannula O2 Flow Rate 2.00 2.00 11/11/19 11/11/19 11/11/19 08:55 08:59 09:02 Pulse 115 115 100 Resp 20 Pulse Ox 97 97 88 O2 Delivery Nasal Cannula O2 Flow Rate 2.00 FiO2 28 Intake and Output 11/11/19 07:00 Intake Total 3446 ml Output Total 3250 ml Balance 196 ml General: Alert, Oriented X3, Cooperative, No acute distress HEENT: Atraumatic, PERRLA, EOMI Neck: Supple, No JVD Lungs: Other (nonlabored on 2L but expiratory wheezing t/o BL lungs ) Heart: Regular rate, Normal S1, Normal S2 Abdomen: Normal bowel sounds, No tenderness, No hepatospenomegaly Extremities: No clubbing, No cyanosis, No edema, Normal pulses, No tenderness/swelling Skin: No rashes Neuro: Normal speech, Strength at 5/5 X4 ext, Normal tone, Sensation intact, Cranial nerves 3-12 NL Psych/Mental Status: Mental status NL, Mood NL All Results(Lab/Rad) Current Medications Medications (Trade) Dose Ordered Sig/Emily Route PRN Reason Start Time Stop Time Status Last Admin Dose Admin Albuterol/ Ipratropium (Duo 0.5-3(2.5) Mg/3 ml) 3 ml STAT STAT IH 11/08/19 21:57 11/09/19 00:23 DC 11/08/19 22:34 Methylprednisolone Sodium Succinate (Solu-Medrol) 125 mg STAT STAT IV 11/08/19 21:57 11/09/19 00:23 DC 11/08/19 22:10 Methylprednisolone Sodium Succinate (Solu-Medrol) 125 mg STK-MED ONCE .ROUTE 11/08/19 22:04 11/08/19 22:05 DC Sterile Water 20 ml @ ud STK-MED ONCE .ROUTE 11/08/19 22:04 11/08/19 22:06 DC Ceftriaxone Sodium 2000 mg/ Sodium Chloride 100 ml @ 100 mls/hr STAT STAT IV 11/08/19 23:42 11/09/19 02:25 DC 11/09/19 00:04 Sodium Chloride 100 ml @ ud STK-MED ONCE IV 11/08/19 23:45 11/08/19 23:47 DC Ceftriaxone Sodium (Rocephin) 2,000 mg STK-MED ONCE .ROUTE 11/08/19 23:45 11/08/19 23:47 DC Nicotine (Nicotine 21mg Patch) 1 each DAILY TD 11/09/19 00:30 11/09/19 06:52 DC 11/09/19 03:22 Albuterol/ Ipratropium (Duo 0.5-3(2.5) Mg/3 ml) 3 ml RTQ4 IH 11/09/19 01:00 12/09/19 00:59 11/11/19 08:54 Methylprednisolone Sodium Succinate (Solu-Medrol) 60 mg Q8HR IV 11/09/19 06:00 11/10/19 12:17 DC 11/10/19 05:08 Ceftriaxone Sodium 1000 mg/ Sodium Chloride 100 ml @ 100 mls/hr Q24HRS IV 11/10/19 00:30 11/10/19 12:17 DC 11/09/19 23:55 Nicotine (Nicotine 21mg Patch) 1 each DAILY TD 11/10/19 09:00 12/10/19 08:59 11/10/19 08:07 Simethicone (Genasyme) 80 mg OT ONCE PO 11/09/19 15:30 11/09/19 20:13 DC 11/09/19 15:30 Azithromycin 500 mg/Sodium Chloride 250 ml @ 175 mls/hr Q24HRS IV 11/09/19 17:30 11/09/19 18:44 DC Enoxaparin Sodium (Lovenox) 40 mg Q24HRS SQ 11/09/19 17:30 11/09/19 18:44 DC Famotidine (Pepcid) 20 mg BID PO 11/09/19 21:00 12/09/19 20:59 11/10/19 21:32 Azithromycin 500 mg/Sodium Chloride 250 ml @ 175 mls/hr Q24HRS IV 11/09/19 21:00 11/10/19 12:17 DC 11/09/19 21:39 Enoxaparin Sodium (Lovenox) 40 mg Q24HRS SQ 11/09/19 21:00 12/09/19 20:59 11/10/19 21:33 Sodium Chloride 250 ml @ ud STK-MED ONCE IV 11/09/19 21:34 11/09/19 21:35 DC Sodium Chloride 500 ml @ ud STK-MED ONCE IV 11/09/19 21:34 11/09/19 21:36 DC Ibuprofen (Motrin) 400 mg Q6HR PRN PO PAIN 1 - 3 11/10/19 09:30 12/10/19 09:29 11/10/19 21:32 Methylprednisolone Sodium Succinate (Solu-Medrol) 40 mg Q8HR IV 11/10/19 14:00 12/10/19 13:59 11/11/19 05:57 Levofloxacin (Levaquin) 500 mg DAILY PO 11/11/19 09:00 12/11/19 08:59 Course Sepsis Screening Results: Posi: POSITIVE Sepsis Qualifier/Stage: SEPSIS RISK Duration or Total Time Spent w: 30 Vitals & review Data Vital Sign - Last 24 Hours 11/10/19 11/10/19 11/10/19 11/10/19 12:07 13:02 13:02 16:04 Temp 97.9 Pulse 94 94 104 100 Resp 18 18 B/P (MAP) 108/71 (83) Pulse Ox 94 96 94 95 O2 Delivery Nasal Canula O2 Flow Rate 2.00 11/10/19 11/10/19 11/10/19 11/10/19 16:05 16:42 19:40 19:44 Temp 98.0 98.2 Pulse 104 100 106 Resp 18 20 20 B/P (MAP) 102/66 (78) 103/69 (80) Pulse Ox 95 98 96 O2 Delivery Nasal Canula Nasal Canula Nasal Cannula O2 Flow Rate 2.00 2.00 2.00 11/10/19 11/10/19 11/10/19 11/10/19 20:55 20:56 20:56 23:22 Pulse 106 106 106 Resp 20 20 20 Pulse Ox 93 93 94 O2 Delivery Nasal Cannula Nasal Cannula O2 Flow Rate 2.00 2.00 FiO2 28 11/11/19 11/11/19 11/11/19 11/11/19 00:01 01:06 01:07 04:54 Temp 98.2 98.0 Pulse 101 94 94 94 Resp 20 20 20 B/P (MAP) 101/68 (79) 137/65 (89) Pulse Ox 95 95 95 94 O2 Delivery Nasal Canula Nasal Canula O2 Flow Rate 2.00 2.00 11/11/19 11/11/19 11/11/19 11/11/19 05:47 05:49 08:03 08:04 Temp 98.5 Pulse 101 101 105 Resp 20 20 B/P (MAP) 107/69 (82) Pulse Ox 94 94 93 O2 Delivery Nasal Canula Nasal Cannula O2 Flow Rate 2.00 2.00 11/11/19 11/11/19 11/11/19 08:55 08:59 09:02 Pulse 115 115 100 Resp 20 20 20 Pulse Ox 97 97 88 O2 Delivery Nasal Cannula O2 Flow Rate 2.00 FiO2 28 Intake and Output 11/11/19 07:00 Intake Total 3446 ml Output Total 3250 ml Balance 196 ml Laboratory Tests Test 11/10/19 05:24 White Blood Count 11.3 10^3/uL Red Blood Count 4.71 10^6/uL Hemoglobin 14.4 g/dL Hematocrit 46.0 % Mean Corpuscular Volume 97.7 fL Mean Corpuscular Hemoglobin 30.6 pg Mean Corpuscular Hemoglobin Concent 31.3 g/dL Red Cell Distribution Width 12.8 % Platelet Count 205 10^3/uL Mean Platelet Volume 9.6 fL Blood Gas Sample Site LEFT RADIAL ARTERY Blood Gas pH 7.310 Blood Gas PCO2 59.4 mmHg Blood Gas PO2 115.5 mmHg Blood Gas HCO3 29.6 mmol/L Blood Gas Base Excess 1.8 mmol/L Anderson Test POSITIVE Arterial Blood Oxygen Saturation 98.1 % Carboxyhemoglobin 1.7 % Methemoglobin 0.5 % Total Hemoglobin 15.5 % Blood Gas Temperature 37.0 Oxygen Delivery Method (LAB) NASAL CANNULA FiO2 28 % Sodium Level 140 mmol/L Potassium Level 4.9 mmol/L Chloride Level 103.0 mmol/L Carbon Dioxide Level 35.3 mmol/L Glucose Level 137 mg/dL Blood Urea Nitrogen 10 mg/dL Creatinine 0.76 mg/dL Calcium Level 8.4 mg/dL Total Carbon Dioxide 31.5 mmol/L Anion Gap 6.6 Estimated GFR () 127.9 Est GFR (CKD-EPI)(Non-Afr [place]ian) 105.7 BUN/Creatinine Ratio 13.0 Procalcitonin < 0.05 ng/mL Current Medications Medications (Trade) Dose Ordered Sig/Emily PRN Reason Start Time Stop Time Status Last Admin Albuterol/ Ipratropium (Duo 0.5-3(2.5) Mg/3 ml) 3 ml RTQ4 11/09/19 01:00 12/09/19 00:59 11/11/19 08:54 Enoxaparin Sodium (Lovenox) 40 mg Q24HRS 11/09/19 21:00 12/09/19 20:59 11/10/19 21:33 Famotidine (Pepcid) 20 mg BID 11/09/19 21:00 12/09/19 20:59 11/10/19 21:32 Ibuprofen (Motrin) 400 mg Q6HR PRN PAIN 1 - 3 11/10/19 09:30 12/10/19 09:29 11/10/19 21:32 Levofloxacin (Levaquin) 500 mg DAILY 11/11/19 09:00 12/11/19 08:59 Methylprednisolone Sodium Succinate (Solu-Medrol) 40 mg Q8HR 11/10/19 14:00 12/10/19 13:59 11/11/19 05:57 Nicotine (Nicotine 21mg Patch) 1 each DAILY 11/10/19 09:00 12/10/19 08:59 11/10/19 08:07 Sepsis Infection Criteria Pres: None LEVEL 1 SEPSIS INFECTION CRITE: ABX Therapy, Cough/Shortness of Breath LEVEL 2-SIRS (LIST ALL THAT AP: HR>90/min Cardiovascular Evidence: Not Assessed or None Hematologic Evidence: None/Not assessed Hepatic Evidence: None/Not assessed Metabolic Evidence: None/Not assessed Neurological Evidence: None/Not assessed Respiratory Evidence: Need for O2 to keep>90% Renal Evidence: None/Not assessed O2 Sat by Pulse Oximetry: 88 Oxygen Flow Rate: 2.00 Assessment/Plan Assessment/Plan Assessment/Plan Assessment & Plan: Problems/Diagnosis: (1) Multifocal pneumonia ICD Code: J18.9 - Pneumonia, unspecified organism SNOMED: 938376628 Status: Acute (2) Acute respiratory failure with hypoxia and hypercarbia ICD Code: J96.01 - Acute respiratory failure with hypoxia; J96.02 - Acute respiratory failure with hypercapnia SNOMED: 536176117 Status: Acute (3) Chronic indwelling Juan catheter ICD Code: Z97.8 - Presence of other specified devices SNOMED: 277157804 Status: Chronic (4) COPD exacerbation ICD Code: J44.1 - Chronic obstructive pulmonary disease with (acute) exacerbation SNOMED: 114573397 Status: Acute (5) Urinary retention ICD Code: R33.9 - Retention of urine, unspecified SNOMED: 368016979 Status: Chronic (6) Shortness of breath ICD Code: R06.02 - Shortness of breath SNOMED: 065306790 Status: Acute (7) Tobacco abuse ICD Code: Z72.0 - Tobacco use SNOMED: 17317372, 258184703 Status: Chronic Assessment 1. Acute respiratory failure with hypoxia and hypercapnia - Wean O2 as able, given nml mentation with PCO2 of 69 suspect chronic retainer. Gas improved today but still with CO2 retention. Clinically stable without drowsiness or tachnypnea. - Anticipate home o2 needs, was set up by CM but will need to be sood pay. Suspect CHRF in this patient. 2. COPD exacerbation - d/t smoking + CAP - solumedrol 60mg IV q8h--> decr to 40q8, duonebs q4h, monitor continuous pulse ox - will need steroid taper on dc and copd controller meds. will need pulm f/u. - spoke at length today about the importance of smoking cessation 3. Multifocal pna--history and imaging not c/w COVID-19. Treat as CAP although clinically no significant si of infection, present on imaging: rocephin/azithro--> procal neg and no si of sepsis so transition to levaquin 500mg PO, total 7d abx course (stop date 11/14). Given indolent presentation clinically could be atypical pna vs possible early organizing pna? and would have him f/u with pulm for exam/imaging to assure resolution. 4. Smoker--nicotine patch, smoking cessation as above 5. Chronic urinary retention with chronic indwelling juan--no e/o infection, f/u with urology o/p as scheduled VTE--lovenox FC, d/w patient Dispo: likely dc tomorrow ANGELICA,MADHAVI Maxwell MD Nov 11, 2019 09:11
[2019-11-11] MEDS: LEVAQUIN PO SCH (09:13)
[2019-11-11] MEDS: NICOTINE 21MG PATCH TD SCH (09:13)
[2019-11-11] MEDS: PEPCID PO SCH ×2 (09:13→21:35)
[2019-11-11 15:24] VITALS: BP 98/68
[2019-11-11 20:00] VITALS: BP 112/77
[2019-11-11] MEDS: LOVENOX SQ SCH (21:35)
[2019-11-12] VITALS: BP 104/82
[2019-11-12] MEDS: DUO 0.5-3(2.5) MG/3 ML IH SCH ×3 (01:49→08:34)
[2019-11-12 04:00] VITALS: BP 118/84
[2019-11-12] MEDS: SOLU-MEDROL IV SCH (06:01)
--- NOTE | 2019-11-12 07:30 | PRM.PN ---
Subjective Subjective Date: Nov 12, 2019 Time: 11:11 Subjective Mr. Jere Perales is a very pleasant 59 y/o M with PMHx of long time smoking hx, COPD not previously on home O2, and chronic indwelling juan catheter due to BPH. He presents with one week of progressive SOB and wheezing. He has had no fever, cough, chest pain or sick contacts. He denies passing out or light headedness. He denies leg swelling or orthopnea. Overall Mr. Perales feels like he is improving he is having cravings for cigarettes but does have nicotine patches ordered for this. Discussed plan is for discharge with home oxygen today and continue oral Levaquin for an additional 5 days as well as a five day course of decreased dose steroid Patient History: Cancer VTE VTE Risk Total Score: 3 VTE Risk Score VTE Risk: Score 0-1 = Low Risk (Aggressive mobilization; early ambulation; no VTE prophylaxis required) Score 2: Moderate Risk (Intermittent/Pneumatic Compression Device OR Lovenox/Heparin/Coumadin) Score 3-4: High Risk (Intermittent/Pneumatic Compression Device AND Lovenox/Heparin/Coumadin) Score > or =5: Highest Risk (Intermittent/Pneumatic Compression Device AND Lovenox/Heparin/Coumadin) Antico:Hep/LMWH/Coum/Xarelto: Yes Mechanical device ordered: Yes Review of Systems Constitutional: No: Fever, Chills, Sweats, Weakness, Malaise Eyes: No: Pain, Conjunctivae inflammation ENT: No: Ear pain, Nose discharge, Nose congestion, Throat pain Respiratory: Shortness of breath, SOB with excertion, Wheezing; No: Cough, Dry, Hemoptysis, Pleuritic Pain, Sputum Cardiovascular: No: Chest Pain, Palpitations, Orthopnea, Paroxysmal Noc. Dyspnea, Edema, Lt Headedness Gastrointestinal: No: Nausea, Vomiting, Abdominal Pain, Diarrhea, Constipation, Melena, Hematochezia Genitourinary: No Dysuria, No Frequency, No Incontinence, No Hematuria, No Retention Musculoskeletal: No: neck pain, arm pain, back pain, leg pain Skin: No: Rash, Lesions, Jaundice, Bruising Neurological: No: Weakness, Numbness, Incoordination, Change in speech, Confusion, Seizures Allergies: Coded Allergies: No Known Allergies (Unverified , 08/29/13) Scheduled Levofloxacin (Levaquin), 500 MG PO DAILY Prednisone (Prednisone), 20 MG PO DAILY24 Objective Vitals and I/O Vital Sign - Last 24 Hours 11/11/19 11/11/19 11/11/19 11/11/19 08:03 08:04 08:55 08:59 Temp 98.5 Pulse 105 115 115 Resp 20 B/P (MAP) 107/69 (82) Pulse Ox 93 97 97 O2 Delivery Nasal Canula Nasal Cannula Nasal Cannula O2 Flow Rate 2.00 2.00 2.00 FiO2 28 11/11/19 11/11/19 11/11/19 11/11/19 09:02 12:41 12:46 15:24 Temp 98.2 Pulse 100 106 101 96 Resp 20 B/P (MAP) 98/68 (78) Pulse Ox 88 91 91 93 O2 Delivery Nasal Canula O2 Flow Rate 1.50 11/11/19 11/11/19 11/11/19 11/11/19 16:40 16:41 16:42 19:40 Pulse 96 90 96 Resp Pulse Ox 96 96 96 O2 Delivery Nasal Cannula Nasal Cannula O2 Flow Rate 1.50 1.50 FiO2 26 11/11/19 11/11/19 11/11/19 11/12/19 20:00 20:32 20:35 00:00 Temp 97.9 97.8 Pulse 87 98 98 82 Resp 20 20 18 B/P (MAP) 112/77 (89) 104/82 (89) Pulse Ox 89 95 95 91 O2 Delivery Nasal Canula Nasal Canula O2 Flow Rate 1.50 11/12/19 11/12/19 11/12/19 11/12/19 01:50 01:52 04:00 05:47 Temp 97.8 Pulse 89 89 96 89 Resp 18 18 16 18 B/P (MAP) 118/84 (95) Pulse Ox 96 96 89 96 O2 Delivery Nasal Canula Intake and Output 11/12/19 07:00 Intake Total 302 ml Output Total 2900 ml Balance -2598 ml General: Alert, Oriented X3, Cooperative, No acute distress HEENT: Atraumatic, PERRLA, EOMI Neck: Supple, No JVD Lungs: Other (nonlabored on 2L but expiratory wheezing t/o BL lungs ) Heart: Regular rate, Normal S1, Normal S2 Abdomen: Normal bowel sounds, No tenderness, No hepatospenomegaly Extremities: No clubbing, No cyanosis, No edema, Normal pulses, No tenderness/swelling Skin: No rashes Neuro: Normal speech, Strength at 5/5 X4 ext, Normal tone, Sensation intact, Cranial nerves 3-12 NL Psych/Mental Status: Mental status NL, Mood NL All Results(Lab/Rad) Current Medications Medications (Trade) Dose Ordered Sig/Emily Route PRN Reason Start Time Stop Time Status Last Admin Dose Admin Albuterol/ Ipratropium (Duo 0.5-3(2.5) Mg/3 ml) 3 ml STAT STAT IH 11/08/19 21:57 11/09/19 00:23 DC 11/08/19 22:34 Methylprednisolone Sodium Succinate (Solu-Medrol) 125 mg STAT STAT IV 11/08/19 21:57 11/09/19 00:23 DC 11/08/19 22:10 Methylprednisolone Sodium Succinate (Solu-Medrol) 125 mg STK-MED ONCE .ROUTE 11/08/19 22:04 11/08/19 22:05 DC Sterile Water 20 ml @ ud STK-MED ONCE .ROUTE 11/08/19 22:04 11/08/19 22:06 DC Ceftriaxone Sodium 2000 mg/ Sodium Chloride 100 ml @ 100 mls/hr STAT STAT IV 11/08/19 23:42 11/09/19 02:25 DC 11/09/19 00:04 Sodium Chloride 100 ml @ ud STK-MED ONCE IV 11/08/19 23:45 11/08/19 23:47 DC Ceftriaxone Sodium (Rocephin) 2,000 mg STK-MED ONCE .ROUTE 11/08/19 23:45 11/08/19 23:47 DC Nicotine (Nicotine 21mg Patch) 1 each DAILY TD 11/09/19 00:30 11/09/19 06:52 DC 11/09/19 03:22 Albuterol/ Ipratropium (Duo 0.5-3(2.5) Mg/3 ml) 3 ml RTQ4 IH 11/09/19 01:00 12/09/19 00:59 11/11/19 08:54 Methylprednisolone Sodium Succinate (Solu-Medrol) 60 mg Q8HR IV 11/09/19 06:00 11/10/19 12:17 DC 11/10/19 05:08 Ceftriaxone Sodium 1000 mg/ Sodium Chloride 100 ml @ 100 mls/hr Q24HRS IV 11/10/19 00:30 11/10/19 12:17 DC 11/09/19 23:55 Nicotine (Nicotine 21mg Patch) 1 each DAILY TD 11/10/19 09:00 12/10/19 08:59 11/10/19 08:07 Simethicone (Genasyme) 80 mg OT ONCE PO 11/09/19 15:30 11/09/19 20:13 DC 11/09/19 15:30 Azithromycin 500 mg/Sodium Chloride 250 ml @ 175 mls/hr Q24HRS IV 11/09/19 17:30 11/09/19 18:44 DC Enoxaparin Sodium (Lovenox) 40 mg Q24HRS SQ 11/09/19 17:30 11/09/19 18:44 DC Famotidine (Pepcid) 20 mg BID PO 11/09/19 21:00 12/09/19 20:59 11/10/19 21:32 Azithromycin 500 mg/Sodium Chloride 250 ml @ 175 mls/hr Q24HRS IV 11/09/19 21:00 11/10/19 12:17 DC 11/09/19 21:39 Enoxaparin Sodium (Lovenox) 40 mg Q24HRS SQ 11/09/19 21:00 12/09/19 20:59 11/10/19 21:33 Sodium Chloride 250 ml @ ud STK-MED ONCE IV 11/09/19 21:34 11/09/19 21:35 DC Sodium Chloride 500 ml @ ud STK-MED ONCE IV 11/09/19 21:34 11/09/19 21:36 DC Ibuprofen (Motrin) 400 mg Q6HR PRN PO PAIN 1 - 3 11/10/19 09:30 12/10/19 09:29 11/10/19 21:32 Methylprednisolone Sodium Succinate (Solu-Medrol) 40 mg Q8HR IV 11/10/19 14:00 12/10/19 13:59 11/11/19 05:57 Levofloxacin (Levaquin) 500 mg DAILY PO 11/11/19 09:00 12/11/19 08:59 Course Sepsis Screening Results: Posi: POSITIVE Sepsis Qualifier/Stage: SEPSIS RISK Duration or Total Time Spent w: 30 Vitals & review Data Vital Sign - Last 24 Hours 11/10/19 11/10/19 11/10/19 11/10/19 12:07 13:02 13:02 16:04 Temp 97.9 Pulse 94 94 104 100 Resp 22 22 18 18 B/P (MAP) 108/71 (83) Pulse Ox 94 96 94 95 O2 Delivery Nasal Canula O2 Flow Rate 2.00 11/10/19 11/10/19 11/10/19 11/10/19 16:05 16:42 19:40 19:44 Temp 98.0 98.2 Pulse 104 100 106 Resp 18 20 20 B/P (MAP) 102/66 (78) 103/69 (80) Pulse Ox 95 98 96 O2 Delivery Nasal Canula Nasal Canula Nasal Cannula O2 Flow Rate 2.00 2.00 2.00 11/10/19 11/10/19 11/10/19 11/10/19 20:55 20:56 20:56 23:22 Pulse 106 106 106 Resp 20 20 Pulse Ox 93 93 94 O2 Delivery Nasal Cannula Nasal Cannula O2 Flow Rate 2.00 2.00 FiO2 28 11/11/19 11/11/19 11/11/19 11/11/19 00:01 01:06 01:07 04:54 Temp 98.2 98.0 Pulse 101 94 94 94 Resp 20 20 20 20 B/P (MAP) 101/68 (79) 137/65 (89) Pulse Ox 95 95 95 94 O2 Delivery Nasal Canula Nasal Canula O2 Flow Rate 2.00 2.00 11/11/19 11/11/19 11/11/19 11/11/19 05:47 05:49 08:03 08:04 Temp 98.5 Pulse 101 101 105 Resp 20 20 20 B/P (MAP) 107/69 (82) Pulse Ox 94 94 93 O2 Delivery Nasal Canula Nasal Cannula O2 Flow Rate 2.00 2.00 11/11/19 11/11/19 11/11/19 08:55 08:59 09:02 Pulse 115 115 100 Resp 20 20 20 Pulse Ox 97 97 88 O2 Delivery Nasal Cannula O2 Flow Rate 2.00 FiO2 28 Intake and Output 11/11/19 07:00 Intake Total 3446 ml Output Total 3250 ml Balance 196 ml Laboratory Tests Test 11/10/19 05:24 White Blood Count 11.3 10^3/uL Red Blood Count 4.71 10^6/uL Hemoglobin 14.4 g/dL Hematocrit 46.0 % Mean Corpuscular Volume 97.7 fL Mean Corpuscular Hemoglobin 30.6 pg Mean Corpuscular Hemoglobin Concent 31.3 g/dL Red Cell Distribution Width 12.8 % Platelet Count 205 10^3/uL Mean Platelet Volume 9.6 fL Blood Gas Sample Site LEFT RADIAL ARTERY Blood Gas pH 7.310 Blood Gas PCO2 59.4 mmHg Blood Gas PO2 115.5 mmHg Blood Gas HCO3 29.6 mmol/L Blood Gas Base Excess 1.8 mmol/L Anderson Test POSITIVE Arterial Blood Oxygen Saturation 98.1 % Carboxyhemoglobin 1.7 % Methemoglobin 0.5 % Total Hemoglobin 15.5 % Blood Gas Temperature 37.0 Oxygen Delivery Method (LAB) NASAL CANNULA FiO2 28 % Sodium Level 140 mmol/L Potassium Level 4.9 mmol/L Chloride Level 103.0 mmol/L Carbon Dioxide Level 35.3 mmol/L Glucose Level 137 mg/dL Blood Urea Nitrogen 10 mg/dL Creatinine 0.76 mg/dL Calcium Level 8.4 mg/dL Total Carbon Dioxide 31.5 mmol/L Anion Gap 6.6 Estimated GFR () 127.9 Est GFR (CKD-EPI)(Non-Afr [place]ian) 105.7 BUN/Creatinine Ratio 13.0 Procalcitonin < 0.05 ng/mL Current Medications Medications (Trade) Dose Ordered Sig/Emily PRN Reason Start Time Stop Time Status Last Admin Albuterol/ Ipratropium (Duo 0.5-3(2.5) Mg/3 ml) 3 ml RTQ4 11/09/19 01:00 12/09/19 00:59 11/11/19 08:54 Enoxaparin Sodium (Lovenox) 40 mg Q24HRS 11/09/19 21:00 12/09/19 20:59 11/10/19 21:33 Famotidine (Pepcid) 20 mg BID 11/09/19 21:00 12/09/19 20:59 11/10/19 21:32 Ibuprofen (Motrin) 400 mg Q6HR PRN PAIN 1 - 3 11/10/19 09:30 12/10/19 09:29 11/10/19 21:32 Levofloxacin (Levaquin) 500 mg DAILY 11/11/19 09:00 12/11/19 08:59 Methylprednisolone Sodium Succinate (Solu-Medrol) 40 mg Q8HR 11/10/19 14:00 12/10/19 13:59 11/11/19 05:57 Nicotine (Nicotine 21mg Patch) 1 each DAILY 11/10/19 09:00 12/10/19 08:59 11/10/19 08:07 Sepsis Infection Criteria Pres: None LEVEL 1 SEPSIS INFECTION CRITE: ABX Therapy, Cough/Shortness of Breath LEVEL 2-SIRS (LIST ALL THAT AP: None/Not assessed Cardiovascular Evidence: Not Assessed or None Hematologic Evidence: None/Not assessed Hepatic Evidence: None/Not assessed Metabolic Evidence: None/Not assessed Neurological Evidence: None/Not assessed Respiratory Evidence: Need for O2 to keep>90% Renal Evidence: None/Not assessed O2 Sat by Pulse Oximetry: 96 Oxygen Flow Rate: 1.50 Assessment/Plan Assessment/Plan Assessment/Plan Assessment & Plan: Problems/Diagnosis: (1) Multifocal pneumonia ICD Code: J18.9 - Pneumonia, unspecified organism SNOMED: 458806348 Status: Acute (2) Acute respiratory failure with hypoxia and hypercarbia ICD Code: J96.01 - Acute respiratory failure with hypoxia; J96.02 - Acute respiratory failure with hypercapnia SNOMED: 324402561 Status: Acute (3) Chronic indwelling Juan catheter ICD Code: Z97.8 - Presence of other specified devices SNOMED: 650471863 Status: Chronic (4) COPD exacerbation ICD Code: J44.1 - Chronic obstructive pulmonary disease with (acute) exacerbation SNOMED: 150294848 Status: Acute (5) Urinary retention ICD Code: R33.9 - Retention of urine, unspecified SNOMED: 055947097 Status: Chronic (6) Shortness of breath ICD Code: R06.02 - Shortness of breath SNOMED: 812616847 Status: Acute (7) Tobacco abuse ICD Code: Z72.0 - Tobacco use SNOMED: 03392319, 848762593 Status: Chronic Assessment 1. Acute respiratory failure with hypoxia and hypercapnia - Wean O2 as able, given nml mentation with PCO2 of 69 suspect chronic retainer. Gas improved today but still with CO2 retention. Clinically stable without drowsiness or tachnypnea. - Anticipate home o2 needs, was set up by CM but will need to be sood pay. Suspect CHRF in this patient. 2. COPD exacerbation - d/t smoking + CAP - solumedrol 60mg IV q8h--> decr to 40q8, duonebs q4h, monitor continuous pulse ox - will need steroid taper on dc and copd controller meds. will need pulm f/u. - spoke at length today about the importance of smoking cessation 3. Multifocal pna--history and imaging not c/w COVID-19. Treat as CAP although clinically no significant si of infection, present on imaging: rocephin/azithro--> procal neg and no si of sepsis so transition to levaquin 500mg PO, total 10d abx course (stop date 11/16). Given indolent presentation clinically could be atypical pna vs possible early organizing pna? and would have him f/u with pulm for exam/imaging to assure resolution. 4. Smoker--nicotine patch, smoking cessation as above 5. Chronic urinary retention with chronic indwelling juan--no e/o infection, f/u with urology o/p as scheduled VTE--lovenox FC, d/w patient MADHAVI DOMINGUEZ MD Nov 12, 2019 07:30
--- NOTE | 2019-11-12 07:32 | PRM.DC ---
Subjective Subjective Date of Discharge: Nov 12, 2019 Time of Request to Discharge: 07:32 Subjective Mr. Jere Perales is a very pleasant 59 y/o M with PMHx of long time smoking hx currently smokes 1.5 PPD, COPD not previously on home O2, and chronic indwelling juan catheter due to BPH. Presented with one week of progressive SOB and wheezing was found on imaging to have multifocal PNA. He has had no fever, cough, chest pain or sick contacts. He denies passing out or light headedness. He denies leg swelling or orthopnea. Overall Mr. Perales feels like he is improving he is having cravings for cigarettes but does have nicotine patches ordered for this. Discussed plan is for discharge with home oxygen today and continue oral Levaquin for an additional 5 days as well as a five day course of decreased dose steroid Patient History: Cancer Exam Vital Signs Vital Signs Date Time Temp Pulse Resp B/P (MAP) Pulse Ox O2 Delivery O2 Flow Rate FiO2 11/12/19 05:47 89 18 96 11/12/19 04:00 97.8 118/84 (95) Nasal Canula 11/11/19 20:00 1.50 11/11/19 16:41 26 General Appearance: Alert, Oriented X3, Cooperative, No acute distress HEENT: Atraumatic, PERRLA, EOMI Respiratory: Other (nonlabored on 2L with course lung sounds throughout and expiratory wheezing ) Cardiovascular: Regular rate, Normal S1, Normal S2 Abdominal: Normal bowel sounds, Soft, No tenderness, No hepatospenomegaly Extremities: No clubbing, No cyanosis, No edema, Normal pulses, No tenderness/swelling Skin: No rash Neuro: Normal speech, Strength at 5/5 X4 ext, Normal tone, Sensation intact, Cranial nerves 3-12 NL Psych/Mental Status: Mental status NL, Mood NL VTE VTE Risk Total Score: 3 VTE Risk Score VTE Risk: Score 0-1 = Low Risk (Aggressive mobilization; early ambulation; no VTE prophylaxis required) Score 2: Moderate Risk (Intermittent/Pneumatic Compression Device OR Lovenox/Heparin/Coumadin) Score 3-4: High Risk (Intermittent/Pneumatic Compression Device AND Lovenox/Heparin/Coumadin) Score > or =5: Highest Risk (Intermittent/Pneumatic Compression Device AND Lovenox/Heparin/Coumadin) Antico:Hep/LMWH/Coum/Xarelto: Yes Mechanical device ordered: Yes Objective Vitals and I/O Vital Sign - Last 24 Hours 11/11/19 11/11/19 11/11/19 11/11/19 08:03 08:04 08:55 08:59 Temp 98.5 Pulse 105 115 115 Resp 20 B/P (MAP) 107/69 (82) Pulse Ox 93 97 97 O2 Delivery Nasal Canula Nasal Cannula Nasal Cannula O2 Flow Rate 2.00 2.00 2.00 FiO2 28 11/11/19 11/11/19 11/11/19 11/11/19 09:02 12:41 12:46 15:24 Temp 98.2 Pulse 100 106 101 96 Resp 20 B/P (MAP) 98/68 (78) Pulse Ox 88 91 91 93 O2 Delivery Nasal Canula O2 Flow Rate 1.50 11/11/19 11/11/19 11/11/19 11/11/19 16:40 16:41 16:42 19:40 Pulse 96 90 96 Resp 20 Pulse Ox 96 96 96 O2 Delivery Nasal Cannula Nasal Cannula O2 Flow Rate 1.50 1.50 FiO2 26 11/11/19 11/11/19 11/11/19 11/12/19 20:00 20:32 20:35 00:00 Temp 97.9 97.8 Pulse 87 98 98 82 Resp 20 20 18 B/P (MAP) 112/77 (89) 104/82 (89) Pulse Ox 89 95 95 91 O2 Delivery Nasal Canula Nasal Canula O2 Flow Rate 1.50 11/12/19 11/12/19 11/12/19 11/12/19 01:50 01:52 04:00 05:47 Temp 97.8 Pulse 89 89 96 89 Resp 18 18 16 18 B/P (MAP) 118/84 (95) Pulse Ox 96 96 89 96 O2 Delivery Nasal Canula Intake and Output 11/12/19 06:59 Intake Total 302 ml Output Total 2900 ml Balance -2598 ml General: Alert, Oriented X3, Cooperative, No acute distress HEENT: Atraumatic, PERRLA, EOMI Neck: Supple, No JVD Lungs: Other (nonlabored on 2L but expiratory wheezing t/o BL lungs ) Heart: Regular rate, Normal S1, Normal S2 Abdomen: Normal bowel sounds, No tenderness, No hepatospenomegaly Extremities: No clubbing, No cyanosis, No edema, Normal pulses, No tenderness/swelling Skin: No rashes Neuro: Normal speech, Strength at 5/5 X4 ext, Normal tone, Sensation intact, Cranial nerves 3-12 NL Psych/Mental Status: Mental status NL, Mood NL All Results(Lab/Rad) Current Medications Medications (Trade) Dose Ordered Sig/Emily Route PRN Reason Start Time Stop Time Status Last Admin Dose Admin Albuterol/ Ipratropium (Duo 0.5-3(2.5) Mg/3 ml) 3 ml STAT STAT IH 11/08/19 21:57 11/09/19 00:23 DC 11/08/19 22:34 Methylprednisolone Sodium Succinate (Solu-Medrol) 125 mg STAT STAT IV 11/08/19 21:57 11/09/19 00:23 DC 11/08/19 22:10 Methylprednisolone Sodium Succinate (Solu-Medrol) 125 mg STK-MED ONCE .ROUTE 11/08/19 22:04 11/08/19 22:05 DC Sterile Water 20 ml @ ud STK-MED ONCE .ROUTE 11/08/19 22:04 11/08/19 22:06 DC Ceftriaxone Sodium 2000 mg/ Sodium Chloride 100 ml @ 100 mls/hr STAT STAT IV 11/08/19 23:42 11/09/19 02:25 DC 11/09/19 00:04 Sodium Chloride 100 ml @ ud STK-MED ONCE IV 11/08/19 23:45 11/08/19 23:47 DC Ceftriaxone Sodium (Rocephin) 2,000 mg STK-MED ONCE .ROUTE 11/08/19 23:45 11/08/19 23:47 DC Nicotine (Nicotine 21mg Patch) 1 each DAILY TD 11/09/19 00:30 11/09/19 06:52 DC 11/09/19 03:22 Albuterol/ Ipratropium (Duo 0.5-3(2.5) Mg/3 ml) 3 ml RTQ4 IH 11/09/19 01:00 12/09/19 00:59 11/11/19 08:54 Methylprednisolone Sodium Succinate (Solu-Medrol) 60 mg Q8HR IV 11/09/19 06:00 11/10/19 12:17 DC 11/10/19 05:08 Ceftriaxone Sodium 1000 mg/ Sodium Chloride 100 ml @ 100 mls/hr Q24HRS IV 11/10/19 00:30 11/10/19 12:17 DC 11/09/19 23:55 Nicotine (Nicotine 21mg Patch) 1 each DAILY TD 11/10/19 09:00 12/10/19 08:59 11/10/19 08:07 Simethicone (Genasyme) 80 mg OT ONCE PO 11/09/19 15:30 11/09/19 20:13 DC 11/09/19 15:30 Azithromycin 500 mg/Sodium Chloride 250 ml @ 175 mls/hr Q24HRS IV 11/09/19 17:30 11/09/19 18:44 DC Enoxaparin Sodium (Lovenox) 40 mg Q24HRS SQ 11/09/19 17:30 11/09/19 18:44 DC Famotidine (Pepcid) 20 mg BID PO 11/09/19 21:00 12/09/19 20:59 11/10/19 21:32 Azithromycin 500 mg/Sodium Chloride 250 ml @ 175 mls/hr Q24HRS IV 11/09/19 21:00 11/10/19 12:17 DC 11/09/19 21:39 Enoxaparin Sodium (Lovenox) 40 mg Q24HRS SQ 11/09/19 21:00 12/09/19 20:59 11/10/19 21:33 Sodium Chloride 250 ml @ ud STK-MED ONCE IV 11/09/19 21:34 11/09/19 21:35 DC Sodium Chloride 500 ml @ ud STK-MED ONCE IV 11/09/19 21:34 11/09/19 21:36 DC Ibuprofen (Motrin) 400 mg Q6HR PRN PO PAIN 1 - 3 11/10/19 09:30 12/10/19 09:29 11/10/19 21:32 Methylprednisolone Sodium Succinate (Solu-Medrol) 40 mg Q8HR IV 11/10/19 14:00 12/10/19 13:59 11/11/19 05:57 Levofloxacin (Levaquin) 500 mg DAILY PO 11/11/19 09:00 12/11/19 08:59 Medication Reconciliation Scheduled Levofloxacin (Levaquin), 500 MG PO DAILY Prednisone (Prednisone), 20 MG PO DAILY24 Plan Assessment Assessment & Plan: Problems/Diagnosis: (1) Multifocal pneumonia ICD Code: J18.9 - Pneumonia, unspecified organism SNOMED: 607313768 Status: Acute (2) Acute respiratory failure with hypoxia and hypercarbia ICD Code: J96.01 - Acute respiratory failure with hypoxia; J96.02 - Acute respiratory failure with hypercapnia SNOMED: 351320337 Status: Acute (3) Chronic indwelling Juan catheter ICD Code: Z97.8 - Presence of other specified devices SNOMED: 400077285 Status: Chronic (4) COPD exacerbation ICD Code: J44.1 - Chronic obstructive pulmonary disease with (acute) exacerbation SNOMED: 349101685 Status: Acute (5) Urinary retention ICD Code: R33.9 - Retention of urine, unspecified SNOMED: 063655499 Status: Chronic (6) Shortness of breath ICD Code: R06.02 - Shortness of breath SNOMED: 542628463 Status: Acute (7) Tobacco abuse ICD Code: Z72.0 - Tobacco use SNOMED: 82781841, 302195950 Status: Chronic Assessment 1. Acute respiratory failure with hypoxia and hypercapnia: currently asymptomatic, wants to be discharged - Weaned O2 as tolerated, given nml mentation with PCO2 of 69 suspect chronic retainer. Gas improved today but still with CO2 retention. Clinically stable without drowsiness or tachnypnea. - Anticipate home o2 needs, was set up by CM but will need to be sood pay. Suspect CHRF in this patient. 2. COPD exacerbation d/t smoking + CAP: much improved managed with solumedrol 60mg IV q8h--> decr to 40q8, duonebs q4h, stable and doing well - 10 day steroid taper and copd controller meds. will need pulm f/u. - spoke at length today about the importance of smoking cessation 3. Multifocal pna--history and imaging not c/w COVID-19. - Managed as CAP although clinically no significant signs of infection, present on imaging: rocephin/azithro--> procal neg and no si of sepsis so transition to levaquin 500mg PO, total 10d abx course (stop date 11/16). Given indolent presentation clinically could be atypical pna vs possible early organizing pna? - f/u with pulm for exam/imaging to assure resolution. 4. Smoker--nicotine patch, smoking cessation as above 5. Chronic urinary retention with chronic indwelling juan--no e/o infection, f/u with urology o/p as scheduled VTE--lovenox FC, d/w patient Plan My Orders - MADHAVI DOMINGUEZ MD Procedure Category Date Status Time Discharge DISCHARGE 11/12/19 Transmitted 07:30 MADHAVI DOMINGUEZ MD Nov 12, 2019 07:32
[2019-11-12] MEDS ORDERED: LEVO500T8 PO (07:35)
[2019-11-12] MEDS ORDERED: PRED20TA PO (07:35)
[2019-11-12 08:16] VITALS: BP 106/69
[2019-11-12] MEDS: NICOTINE 21MG PATCH TD SCH (08:17)
[2019-11-12] MEDS: PEPCID PO SCH (08:17)
[2019-11-12] MEDS: LEVAQUIN PO SCH (08:17)
[2019-11-12 09:30] VITALS: BP 106/69
== END 2019-11-12 09:22 | disposition home or self-care (01) | DRG 193 ==
LOC: ER 21:36 → MS 11-09 00:02
PROVIDERS: ADMIT Family Medicine; ATTEND Family Medicine
DX: J18.9 Pneumonia, unspecified organism (principal); J96.01 Acute respiratory failure with hypoxia; J96.02 Acute respiratory failure with hypercapnia; E87.2 Acidosis; J44.1 Chronic obstructive pulmonary disease with (acute) exacerbation; J44.0 Chronic obstructive pulmonary disease with (acute) lower respiratory infection; F17.210 Nicotine dependence, cigarettes, uncomplicated; R33.8 Other retention of urine; N40.1 Benign prostatic hyperplasia with lower urinary tract symptoms; Z90.49 Acquired absence of other specified parts of digestive tract; Z80.9 Family history of malignant neoplasm, unspecified; Z71.6 Tobacco abuse counseling
CPT/HCPCS: 36415; 36600; 71045; 71275; 80048; 80053; 82550; 82553; 82803; 82948; 83880; 84145; 84484; 85025; 85027; 85379; 85610; 85730; 87040; 93005; 94640; 99285; G0378; J0456; J0696; J1650; J1956; J2920; J2930; J7040; J7050; J7620; Q9965; A4216

== ENCOUNTER 2020-04-09 21:39 | Emergency (ER) | payer MEDICAID ==
[~2020-04-09] VITALS: Ht 154.9 cm; Wt 45.4 kg
[~2020-04-09 21:39] MED LIST: LEVO500T8 PO; PRED20TA PO
[2020-04-09 22:20] VITALS: BP 114/76
--- NOTE | 2020-04-09 22:42 | ER.PDOC ---
General Chief Complaint: Requesting Medical Care Stated Complaint: CATH CHANGE Time seen by MD: 22:35 Source: patient Exam Limitations: no limitations History of Present Illness Initial Comments Wants Wilson catheter changed, he has not changed it for 5 Months. He has BPH and has no complaints. Sexual History: Non-contributory Allergies: Coded Allergies: No Known Allergies (Unverified , 08/29/13) Home Meds Active Scripts Prednisone (PREDNISONE) 20 Mg Tablet, 20 MG PO DAILY24 for 5 Days, #5 [facility] Prov:MADHAVI DOMINGUEZ MD 11/12/19 Levofloxacin (LEVAQUIN) 500 Mg Tablet, 500 MG PO DAILY for 5 Days, #5 TAB Prov:MADHAVI DOMINGUEZ MD 11/12/19 Past Medical History Medical History: COPD, other Surgical History: cholecystectomy Social History Drug Use: none Review of Systems Constitutional: no symptoms reported EENTM: no symptoms reported Respiratory: no symptoms reported Cardiovascular: no symptoms reported Gastrointestinal: no symptoms reported Genitourinary: see HPI All Other Systems: Reviewed and Negative Physical Exam General Appearance: No Apparent Distress, WD/WN EENT: eyes nml inspection Neck: nml inspection, non-tender Cardiovascular/Respiratory: Regular Rate, Rhythm, No M/R/G, Normal Peripheral Pulses, No JVD, Normal Breath Sounds, No Respiratory Distress Abdomen: Normal Bowel Sounds, Non Tender, Soft, No Organomegaly, No Pulsatile Mass Back: nml inspection Extremities: Normal Range of Motion, Non-Tender, Normal Inspection, No Pedal Edema, No Calf Tenderness, Normal Capillary Refill 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 I told him to return tomorrow during the day in case there is a problem putting a new one, we can contact Dr. Owusu since it is not an emergency. He can also follow up with his Urologist Dr. Ortiz in [place]. He voiced understanding. ER DEPART Departure Time of Disposition: 22:42 Disposition: 01 HOME, SELF-CARE Impression: Primary Impression: Chronic indwelling Wilson catheter Condition: Stable Referrals: PCP,UNKNOWN (PCP) PRIMARY CARE PROVIDER Additional Instructions: F/U with your Urologist in 1-2 days or return to ED in the day. Duration or Time Spent with Pa: 10 min DEMETRI ARCOS MD Apr 09, 2020 22:42
== END 2020-04-09 22:53 | disposition home or self-care (01) ==
LOC: ER 21:39
DX: Z46.6 Encounter for fitting and adjustment of urinary device (principal); J44.9 Chronic obstructive pulmonary disease, unspecified; Z90.49 Acquired absence of other specified parts of digestive tract
CPT/HCPCS: 99281

== ENCOUNTER 2020-05-28 04:04 | Emergency (ER) | payer MEDICAID, OTHER ==
[~2020-05-28] VITALS: Ht 154.9 cm; Wt 48.1 kg
--- NOTE | 2020-05-28 04:25 | NUR ---
IRRIGATION DR. ARCOS RECOMMENDING IRRIGATION PRIOR TO ATTEMPTING TO REPLACE MCKEON CATHETER. SUPPLIES GATHERED, PATIENT INFORMED.
[2020-05-28] MEDS ORDERED: WATER ONE (04:26)
--- NOTE | 2020-05-28 04:50 | ER.PDOC ---
General Chief Complaint: Male Stated Complaint: CLOGGED CATH Time seen by MD: 04:46 Source: patient Exam Limitations: no limitations History of Present Illness Initial Comments Patient here because his Wilson catheter is clogged up and is not draining resulting to suprapubic pain. Timing/Duration: yesterday Severity/Quality: moderate Associated Symptoms: Retention Sexual History: Non-contributory Allergies: Coded Allergies: No Known Allergies (Unverified , 08/29/13) Home Meds Active Scripts Prednisone (PREDNISONE) 20 Mg Tablet, 20 MG PO DAILY24 for 5 Days, #5 AHFU Prov:MADHAVI DOMINGUEZ MD 11/12/19 Levofloxacin (LEVAQUIN) 500 Mg Tablet, 500 MG PO DAILY for 5 Days, #5 TAB Prov:MADHAVI DOMINGUEZ MD 11/12/19 Past Medical History Medical History: COPD Surgical History: cholecystectomy, tonsillectomy Family History Significant Family History: no pertinent family hx Social History Alcohol Use: none Drug Use: none Review of Systems Constitutional: no symptoms reported Respiratory: no symptoms reported Cardiovascular: no symptoms reported Gastrointestinal: no symptoms reported Genitourinary: see HPI Musculoskeletal: no symptoms reported All Other Systems: Reviewed and Negative Physical Exam General Appearance: No Apparent Distress, WD/WN EENT: eyes nml inspection Neck: nml inspection, non-tender Cardiovascular/Respiratory: Regular Rate, Rhythm, No M/R/G, Normal Peripheral Pulses, No JVD, Normal Breath Sounds, No Respiratory Distress Abdomen: Normal Bowel Sounds, Soft, Distended Bladder Male Genitals: Normal Genitalia Back: nml inspection Extremities: Normal Range of Motion, Non-Tender, Normal Inspection, No Pedal Edema, No Calf Tenderness, Normal Capillary Refill 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 There was a lot of resistance. Finally she had to change and put a new Wilson catheter. Urine drainage satisfactory and patient's bladder distention resolved. Patient feeling better to go home. ER DEPART Departure Time of Disposition: 04:49 Disposition: 01 HOME, SELF-CARE Impression: Primary Impression: Wilson catheter problem Condition: Improved Referrals: JUSTYN GARCIA MD (PCP) PRIMARY CARE PROVIDER Additional Instructions: F/U with your Urologist as needed Return to ED if any concerns Duration or Time Spent with Pa: 10 min Problem Qualifiers Primary Impression: Wilson catheter problem Encounter type: initial encounter Qualified Codes: T83.9XXA - Unspecified complication of genitourinary prosthetic device, implant and graft, initial encounter DEMETRI ARCOS MD May 28, 2020 04:50
--- NOTE | 2020-05-28 04:54 | NUR ---
EDUCATION EXPLAINED TO PATIENT THAT SINCE THIS MCKEON CATHETER IS A LIFE LONG PART OF HIS LIFE HE NEEDS TO HAVE BETTER MANAGEMENT OF DEVICE. EXPLAINED THAT A PRIMARY CARE PROVIDER CAN REFER HIM TO HOME HEALTH FOR MANAGEMENT, COMPLICATIONS, AND CHANGING OF DEVICE. PATIENT VERBALIZED UNDERSTANDING.
[2020-05-28 05:00] VITALS: BP 121/78
== END 2020-05-28 05:00 | disposition home or self-care (01) ==
LOC: ER 04:04
DX: R33.9 Retention of urine, unspecified (principal); T83.9XXA Unspecified complication of genitourinary prosthetic device, implant and graft, initial encounter; J44.9 Chronic obstructive pulmonary disease, unspecified; Z79.52 Long term (current) use of systemic steroids; Z90.49 Acquired absence of other specified parts of digestive tract; Y84.6 Urinary catheterization as the cause of abnormal reaction of the patient, or of later complication, without mention of misadventure at the time of the procedure
CPT/HCPCS: 51702; 99284

== ENCOUNTER → 2020-06-17 | Outpatient (CLI) | payer OTHER ==
--- NOTE | 2020-06-17 16:34 | DIREP ---
PROCEDURE:CHEST 2 VIEWS COMPARISON:[facility], CR, XRAY CHEST SINGLE VW, 11/08/2019, 09:36 PM. INDICATIONS:COPD FINDINGS: LUNGS/PLEURA:Stable calcified granulomata in the left midlung. No focal consolidation, effusion or pneumothorax. VASCULATURE:Normal. Unremarkable pulmonary vasculature. CARDIAC:Normal. No cardiac silhouette abnormality or cardiomegaly. MEDIASTINUM:Calcified aorta. BONES:Mild degenerative change. OTHER:Negative. CONCLUSION:No acute pulmonary process. Dictated by: Shoaib Chan M.D. on 06/17/2020 at 04:31 PM
== END | disposition home or self-care (01) ==
LOC: RAD 16:00
PROVIDERS: ATTEND Nurse Practitioner Family
DX: J44.9 Chronic obstructive pulmonary disease, unspecified (principal)
CPT/HCPCS: 71046

== ENCOUNTER 2020-07-01 13:06 | Emergency (ER) | payer OTHER ==
[~2020-07-01] VITALS: Ht 154.9 cm; Wt 45.4 kg
[2020-07-01 13:22] VITALS: BP 134/102
--- NOTE | 2020-07-01 13:25 | NUR ---
ARRIVAL PATIENT ARRIVED TO ED4 AMBULATORY, C/O OF URINARY RETENTION TODAY, PATIENT STATES HIS CATHETER STOPPED DRAINING LAST NIGHT, WAS UNABLE TO GET IT TO DRAIN, CAME TO THE ED FOR EVAL, DOCTOR JOSSELYN TO THE ROOM TO SEE PATIENT.
--- NOTE | 2020-07-01 13:40 | ER.PDOC ---
General Chief Complaint: Male Stated Complaint: MALE Time seen by MD: 13:37 Source: patient Exam Limitations: no limitations History of Present Illness Initial Comments Patient here for routine Wilson catheter change. The one he has is not draining and he is having suprapubic pain. Severity/Quality: moderate Associated Symptoms: Retention Sexual History: Non-contributory Prior symptoms/Treatment: Similar symptoms previous, Recenly Seen, Treated by Doctor Allergies: Coded Allergies: No Known Allergies (Unverified , 08/29/13) Home Meds Active Scripts Prednisone (PREDNISONE) 20 Mg Tablet, 20 MG PO DAILY24 for 5 Days, #5 AHFU Prov:MADHAVI DOMINGUEZ MD 11/12/19 Levofloxacin (LEVAQUIN) 500 Mg Tablet, 500 MG PO DAILY for 5 Days, #5 TAB Prov:MADHAVI DOMINGUEZ MD 11/12/19 Past Medical History Medical History: COPD Surgical History: cholecystectomy, other Family History Significant Family History: no pertinent family hx Social History Alcohol Use: none Drug Use: none Review of Systems Constitutional: no symptoms reported EENTM: no symptoms reported Respiratory: no symptoms reported Cardiovascular: no symptoms reported Gastrointestinal: no symptoms reported Genitourinary: see HPI All Other Systems: Reviewed and Negative Physical Exam General Appearance: No Apparent Distress, WD/WN EENT: eyes nml inspection, nml ENT inspection, pharynx nml Neck: nml inspection, non-tender Cardiovascular/Respiratory: Regular Rate, Rhythm, No M/R/G, Normal Peripheral Pulses, No JVD, Normal Breath Sounds, No Respiratory Distress Abdomen: Normal Bowel Sounds, Soft, No Organomegaly, No Pulsatile Mass, Tenderness (suprapubic), Distended Bladder Back: nml inspection Extremities: Normal Range of Motion, Non-Tender, Normal Inspection, No Pedal Edema, No Calf Tenderness, Normal Capillary Refill 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 ER DEPART Departure Time of Disposition: 13:39 Disposition: 01 HOME, SELF-CARE Impression: Primary Impression: Urinary retention Additional Impression: Chronic indwelling Wilson catheter Condition: Improved Referrals: PCP,UNKNOWN (PCP) PRIMARY CARE PROVIDER Additional Instructions: F/U with your Urologist as needed. Duration or Time Spent with Pa: 10 min Problem Qualifiers DEMETRI ARCOS MD Jul 01, 2020 13:40
[2020-07-01 14:05] VITALS: BP 136/87
== END 2020-07-01 14:05 | disposition home or self-care (01) ==
LOC: ER 13:06
DX: R33.9 Retention of urine, unspecified (principal); J44.9 Chronic obstructive pulmonary disease, unspecified; Z79.52 Long term (current) use of systemic steroids; Z90.49 Acquired absence of other specified parts of digestive tract
CPT/HCPCS: 51702; 99283; 99284

== ENCOUNTER 2020-10-10 03:55 | Emergency (ER) | payer OTHER ==
[~2020-10-10] VITALS: Ht 154.9 cm; Wt 49.4 kg
[2020-10-10 04:19] VITALS: BP_SYST 104; BP_SYST 140; BP_DIAS 88
--- NOTE | 2020-10-10 04:37 | ER.PDOC ---
General Chief Complaint: Male Stated Complaint: MALE Time seen by MD: 04:32 Source: patient History of Present Illness Initial Comments Patient present to the ER with the CC of having his urinary catheter blocked. Patient need to have it replaced. Patient denies fever or chills, No swollen lymph nodes, Patient denies Chest pain or cough, No respiratory distress. Patient Denies Nausea, Vomit, diarrhea or constipation, Patient denies urinary symptoms, No WELLER back pain or Neck pain/stiffness. Patient does not look toxic or in any acute distress. Timing/Duration: this morning Severity/Quality: mild Associated Symptoms: Retention Sexual History: Non-contributory Allergies: Coded Allergies: No Known Allergies (Unverified , 08/29/13) Home Meds Active Scripts Prednisone (PREDNISONE) 20 Mg Tablet, 20 MG PO DAILY24 for 5 Days, #5 AHFU Prov:MADHAVI DOMINGUEZ MD 11/12/19 Levofloxacin (LEVAQUIN) 500 Mg Tablet, 500 MG PO DAILY for 5 Days, #5 TAB Prov:MADHAVI DOMINGUEZ MD 11/12/19 Past Medical History Medical History: COPD, other Surgical History: cholecystectomy, other Social History Alcohol Use: none Drug Use: none Review of Systems Constitutional: no symptoms reported EENTM: no symptoms reported Respiratory: no symptoms reported Cardiovascular: no symptoms reported Genitourinary: see HPI Musculoskeletal: no symptoms reported Physical Exam General Appearance: No Apparent Distress Neck: nml inspection Cardiovascular/Respiratory: Regular Rate, Rhythm Abdomen: Normal Bowel Sounds Male Genitals: Normal Genitalia Back: nml inspection Extremities: Normal Range of Motion, Non-Tender Results/Orders Results/Orders Orders - FARHAT SKY MD Urinalysis (10/10/20 04:30) Wilson To [place] (10/10/20 04:30) Urine Culture (10/10/20 04:46) Vital Signs Date Time Temp Pulse Resp B/P (MAP) Pulse Ox O2 Delivery O2 Flow Rate FiO2 10/10/20 04:19 98.1 95 20 10/10/20 04:19 98.1 95 20 93 10/10/20 04:19 98.1 95 20 140/88 (105) 93 Laboratory Tests Test 10/10/20 04:46 Urine Collection Type CCMS Urine Color YELLOW Urine Appearance CLOUDY Urine Bilirubin NEGATIVE (NEGATIVE) Urine Ketones NEGATIVE (NEGATIVE) Urine Specific [place] 1.015 (1.005-1.030) Urine pH >=9 (4.5-8.0) Urine Protein 100 mg/dL (NEGATIVE) H Urine Urobilinogen 0.2 E.U./dL (0.2) Urine Nitrate POSITIVE (NEGATIVE) H Urine Leukocyte Esterase SMALL (NEGATIVE) H Urine Glucose (Auto)(UA) NEGATIVE (NEGATIVE) Urine Blood MODERATE (NEGATIVE) H Urine RBC TNTC RBC/HPF (NONE SEEN) H Urine WBC 2-5 WBC/HPF (0-2) Urine Squamous Epithelial Cells MODERATE #/HPF (FEW) Urine Bacteria MANY (NONE SEEN) H ER DEPART Departure Time of Disposition: 05:11 Disposition: 01 HOME / SELF CARE / HOMELESS Impression: Primary Impression: Chronic indwelling Wilson catheter Additional Impression: Urinary retention Condition: Improved Referrals: LAURY WILKINS SIX SIGMA PROJECT MANAGER (PCP) PRIMARY CARE PROVIDER Comments Comprehensive ER evaluation was performed of the patient's symptoms. The patient was given the opportunity to have all of them questions addressed. Medication side effects and proper use of medications were discussed in detail. Patient was involved in the medical decision-making. The patient voiced understanding and agreement with the plan of care. Follow up with your primary care physician for further evaluation and treatment. Take your medication as prescribed. If you have prescription medications please take your home medication as prescribed. Drink plenty of fluids. Avoid fast food and process food. Use OTC medication as need it. If worsening of symptoms or new symptoms start please visit your doctor or return to the ER. The patient is stable, nontoxic at the moment of the DC. Symptoms and signs for early ER return were discussed. Alternant Tylenol and Motrin can be used Q 3 hrs. one at the time if need it. Please read your DC instruction Duration or Time Spent with Pa: 10 Problem Qualifiers FARHAT SKY MD Oct 10, 2020 04:37
--- NOTE | 2020-10-10 04:48 | NUR ---
RN d/c'd clogged juan catheter that pt presented with. Initiated 18fr juan. ~750 output. Sample taken to lab at this time.
[2020-10-10 04:58] LABS: BILIRUBIN,URINE NEGATIVE (NEGATIVE); UA COLOR YELLOW; UROBILINOGEN,URINE 0.2 E.U./dL (0.2)
== END 2020-10-10 05:20 | disposition home or self-care (01) ==
LOC: ER 03:55
DX: R33.9 Retention of urine, unspecified (principal); J44.9 Chronic obstructive pulmonary disease, unspecified; Z79.52 Long term (current) use of systemic steroids; Z90.49 Acquired absence of other specified parts of digestive tract
CPT/HCPCS: 51702; 81001; 87077; 87086; 87186; 99284

== ENCOUNTER 2020-11-26 15:03 | Emergency (ER) | payer OTHER ==
[2020-11-26 15:49] VITALS: BP 122/97
--- NOTE | 2020-11-26 17:31 | NUR ---
MCKEON CATHETER CHANGE SEE INTERVENTIONS FOR DETAILS. PT TOLERATED PROCEDURE WITHOUT COMPLAINT.
[2020-11-26 17:39] LABS: BILIRUBIN,URINE NEGATIVE (NEGATIVE); UA COLOR RED; UROBILINOGEN,URINE 0.2 E.U./dL (0.2)
[2020-11-26] MEDS ORDERED: CIPRO PO STA (18:02)
--- NOTE | 2020-11-26 18:06 | ER.PDOC ---
General Chief Complaint: Male Stated Complaint: MALE Time seen by MD: 16:50 Source: patient Exam Limitations: no limitations History of Present Illness Initial Comments Patient presents with complaint of Wilson not draining since 11am. He has a urologist in [place] but has not seen them. He denies any fevers or chills. He does complain of suprapubic pain. Timing/Duration: this morning Severity/Quality: fullness Location: suprapubic Allergies: Coded Allergies: No Known Allergies (Unverified , 08/29/13) Home Meds Active Scripts Prednisone (PREDNISONE) 20 Mg Tablet, 20 MG PO DAILY24 for 5 Days, #5 AHFU Prov:MADHAVI DOMINGUEZ MD 11/12/19 Levofloxacin (LEVAQUIN) 500 Mg Tablet, 500 MG PO DAILY for 5 Days, #5 TAB Prov:MADHAVI DOMINGUEZ MD 11/12/19 Past Medical History Medical History: COPD, other Surgical History: cholecystectomy Social History Alcohol Use: none Drug Use: none Review of Systems Constitutional: no symptoms reported Cardiovascular: no symptoms reported Gastrointestinal: abdominal pain Genitourinary: no symptoms reported Skin: no symptoms reported Physical Exam General Appearance: No Apparent Distress, WD/WN EENT: nml ENT inspection Neck: nml inspection, non-tender Cardiovascular/Respiratory: Regular Rate, Rhythm, Normal Peripheral Pulses Abdomen: Tenderness (Moderate suprapubic tenderness) Extremities: Normal Range of Motion Neurologic/Psychiatric: Alert, Normal Mood/Affect, Oriented x 3 Skin: Normal Color, Warm/Dry Results/Orders Results/Orders Orders - JOURDAN CHARLES MD Place Wilson Catheter (11/26/20 16:11) Urinalysis (11/26/20 17:29) Urine Culture (11/26/20 17:28) Vital Signs Date Time Temp Pulse Resp B/P (MAP) Pulse Ox O2 Delivery O2 Flow Rate FiO2 11/26/20 15:49 98.5 100 18 122/97 (105) 100 Room Air 11/26/20 15:49 98.5 100 18 11/26/20 15:49 98.5 100 22 100 Laboratory Tests Test 11/26/20 17:28 Urine Collection Type UNKNOWN Urine Color RED Urine Appearance CLOUDY Urine Bilirubin NEGATIVE (NEGATIVE) Urine Ketones NEGATIVE (NEGATIVE) Urine Specific [place] 1.020 (1.005-1.030) Urine pH 8.5 (4.5-8.0) Urine Protein 100 mg/dL (NEGATIVE) H Urine Urobilinogen 0.2 E.U./dL (0.2) Urine Nitrate NEGATIVE (NEGATIVE) Urine Leukocyte Esterase MODERATE (NEGATIVE) H Urine Glucose (Auto)(UA) NEGATIVE (NEGATIVE) Urine Blood LARGE (NEGATIVE) H Urine RBC TNTC RBC/HPF (NONE SEEN) H Urine WBC TNTC WBC/HPF (0-2) H Urine Squamous Epithelial Cells NONE SEEN #/HPF (FEW) Urine Bacteria MANY (NONE SEEN) H Progress Progress Patient's Wilson has been changed. His urine does show urinary tract infection that is sensitive to Cipro. He will be given a dose here and a prescription. Patient has been instructed to follow-up with his urologist for further evaluation and management. He should return to the emergency department if worsening symptoms such as fever or Wilson dysfunction ER DEPART Departure Time of Disposition: 18:05 Disposition: 01 HOME / SELF CARE / HOMELESS Impression: Primary Impression: Wilson catheter problem Additional Impression: UTI (urinary tract infection) Condition: Stable Referrals: LAURY WILKINS HOME HEALTH CARE PROVIDER (PCP) PRIMARY CARE PROVIDER Duration or Time Spent with Pa: 08 Problem Qualifiers JOURDAN CHARLES MD Nov 26, 2020 18:06
[2020-11-26] MEDS ORDERED: CIPRO ONE (18:10)
== END 2020-11-26 18:14 | disposition home or self-care (01) ==
LOC: ER 15:03
DX: T83.9XXA Unspecified complication of genitourinary prosthetic device, implant and graft, initial encounter (principal); N39.0 Urinary tract infection, site not specified; J44.9 Chronic obstructive pulmonary disease, unspecified; Z79.52 Long term (current) use of systemic steroids; Z90.49 Acquired absence of other specified parts of digestive tract; Y84.6 Urinary catheterization as the cause of abnormal reaction of the patient, or of later complication, without mention of misadventure at the time of the procedure
CPT/HCPCS: 51702; 81001; 87077; 87086; 87186; 99284

== ENCOUNTER 2020-12-26 18:00 | Emergency (ER) | payer OTHER ==
[~2020-12-26] VITALS: Ht 154.9 cm; Wt 44.9 kg
[2020-12-26 19:44] VITALS: BP 136/89
--- NOTE | 2020-12-26 20:35 | ER.PDOC ---
General Chief Complaint: Male Stated Complaint: CATHETER BAG LEAKING Time seen by MD: 19:05 Source: patient Exam Limitations: no limitations History of Present Illness Initial Comments 60 Y M had a juan placed for kidney stones, came in because the bag was leaking, no other complaints Timing/Duration: just prior to arrival Severity/Quality: moderate Prior symptoms/Treatment: Recently Hospitalized Allergies: Coded Allergies: No Known Allergies (Unverified , 08/29/13) Home Meds Active Scripts Prednisone (PREDNISONE) 20 Mg Tablet, 20 MG PO DAILY24 for 5 Days, #5 AHFU Prov:MADHAVI DOMINGUEZ MD 11/12/19 Levofloxacin (LEVAQUIN) 500 Mg Tablet, 500 MG PO DAILY for 5 Days, #5 TAB Prov:MADHAVI DOMINGUEZ MD 11/12/19 Past Medical History Medical History: COPD Surgical History: cholecystectomy, other Social History Alcohol Use: none Drug Use: none Review of Systems All Other Systems: Reviewed and Negative Physical Exam General Appearance: No Apparent Distress Male Genitals: Other (foly catheter draining clear urine) Results/Orders Results/Orders Vital Signs Date Time Temp Pulse Resp B/P (MAP) Pulse Ox O2 Delivery O2 Flow Rate FiO2 12/26/20 19:44 98.3 99 20 12/26/20 19:44 98.3 99 20 136/89 (105) 96 Room Air 12/26/20 19:44 98.3 99 20 96 ER DEPART Departure Time of Disposition: 20:34 Disposition: 01 HOME / SELF CARE / HOMELESS Impression: Primary Impression: Juan catheter problem Condition: Improved Referrals: LAURY WILKINS LEI SELLER (PCP) PRIMARY CARE PROVIDER Duration or Time Spent with Pa: LOGAN Lainez MD Dec 26, 2020 20:35
== END 2020-12-26 20:42 | disposition home or self-care (01) ==
LOC: ER 18:00
DX: T83.9XXA Unspecified complication of genitourinary prosthetic device, implant and graft, initial encounter (principal); J44.9 Chronic obstructive pulmonary disease, unspecified; Z79.52 Long term (current) use of systemic steroids; Z90.49 Acquired absence of other specified parts of digestive tract; Y84.6 Urinary catheterization as the cause of abnormal reaction of the patient, or of later complication, without mention of misadventure at the time of the procedure; Y73.8 Miscellaneous gastroenterology and urology devices associated with adverse incidents, not elsewhere classified
CPT/HCPCS: 99281

== ENCOUNTER 2021-12-01 12:23 | Emergency (ER) | payer OTHER ==
[~2021-12-01] VITALS: Ht 154.9 cm; Wt 40.8 kg
[~2021-12-01 12:23] MED LIST changes: -LEVO500T8 PO; +LEVO500T9 PO
--- NOTE | 2021-12-01 12:24 | NUR ---
ARRIVAL PT ARRIVED VIA WHEELCHAIR TO ED 3 WITH C/O BEING SOB AND DOESNT KNOW FOR HOW LONG. HE DOES HAVE COPD AND IN ON 3L NS. INITIALLY HE WAS SATTING 76%. INCREASED O2 TO 6L AND HIS SATS INCREASED TO 97%. VITALS TAKEN AND DR NOTIFIED.
--- NOTE | 2021-12-01 12:37 | ER.PDOC ---
General Chief Complaint: Requesting Medical Care Stated Complaint: SOB,CONFUSSION Time seen by MD: 12:34 Source: patient, family Exam Limitations: other (pt is confused) History of Present Illness Initial Comments 61 yo M has SOB and some nonspecific chest pain, for unclear duration (is confused, and is brought in from a location with a strong reputation for methamphetamine trafficking and use.) Pt and family deny such. Pt is confused significantly beyond baseline, was hypoxemic to mid-70s on presentation. Having tachycardia and dyspnea, confusion on presentation. Timing/Duration: unknown Severity: moderate Activities at Onset: other (unclear) Allergies: Coded Allergies: No Known Allergies (Unverified , 08/29/13) Home Meds Active Scripts Prednisone (PREDNISONE) 20 Mg Tablet, 20 MG PO DAILY24 for 5 Days, #5 AHFU Prov:MADHAVI DOMINGUEZ MD 11/12/19 Levofloxacin (LEVAQUIN) 500 Mg Tablet, 500 MG PO DAILY for 5 Days, #5 TAB Prov:MADHAVI DOMINGUEZ MD 11/12/19 Past Medical History Medical History: COPD, other (bipolar affective disorder, should be taking depakote, believes he is) Surgical History: cholecystectomy, other Family History Significant Family History: no pertinent family hx Social History Smoking: quit greater than 1 year, cigarettes Drug Use: none Reviewed Nursing Reviewed: Vital Signs, Abn. Noted, Nursing Assessment Review of Systems Constitutional: no symptoms reported EENTM: no symptoms reported Respiratory: cough, shortness of breath Cardiovascular: chest pain (does not himself affirm chest pain very clearly, but this is reported by others/EMS) Gastrointestinal: no symptoms reported Genitourinary: no symptoms reported Musculoskeletal: no symptoms reported Skin: no symptoms reported Psychiatric/Neurological: other (confusion) Endocrine: no symptoms reported Hematologic/Lymphatic: no symptoms reported All Other Systems: Reviewed and Negative Physical Exam General Appearance: Mild Distress, Thin HEENT: Other (grossly wnl) Respiratory: decreased breath sounds (somewhat more decreased R upper than other regions, but rather quiet lung sounds all lung kwon.), wheezing Cardiovascular: Tachycardia (but regular) Extremities: Normal Range of Motion Neurologic/Psychiatric: No Motor/Sensory Deficits, Other (alert x 1-2, doesn't track conversation or history very well) Skin: Diaphoresis, Pallor Lymphatic: Other (grossly wnl) Results/Orders Results/Orders Orders - MICHAEL LEAL MD Cbc With Auto Diff (12/01/21 12:37) Comprehensive Metabolic Panel (12/01/21 12:37) Creatine Kinase (12/01/21 12:37) Creatine Kinase Mb (12/01/21 12:37) Probnp B-Type Academic Guidance Specialist (12/01/21 12:37) PT (12/01/21 12:37) Partial Thromboplastin Time. (12/01/21 12:37) D-Dimer (12/01/21 12:37) Xr Chest 1v (12/01/21 12:37) Ekg-Routine (12/01/21 12:37) Aspirin (Aspirin) (12/01/21 13:00) Saline Lock (12/01/21 12:37) Troponin I High Sensitivity (12/01/21 12:37) Valproate (12/01/21 12:37) Covid19 Antigen Alma Delia Geetha (12/01/21 12:37) Influenza A&B (12/01/21 12:37) Alcohol(Ml) (12/01/21 12:37) Levalbuterol Hcl (Xopenex) (12/01/21 15:00) Aspirin (Aspirin) (12/01/21 12:51) Lactic Acid(Ml) (12/01/21 13:16) Procalcitonin (12/01/21 13:16) Blood Culture (12/01/21 13:16) Arterial Blood Gas (12/01/21 13:16) Methylprednisolone Sod Succ (Solu-Medrol (12/01/21 13:19) Cefepime Hcl (Maxipime) (12/01/21 13:30) Vancomycin/Water For Inj (Peg) (Vancomyc (12/01/21 13:30) Levalbuterol Hcl (Xopenex) (12/01/21 13:24) Saline Lock (12/01/21 13:22) 0.9 % Sodium Chloride (Ns 1000ml) (12/01/21 13:30) 0.9 % Sodium Chloride (Ns 1000ml) (12/01/21 13:41) Methylprednisolone Sod Succ (Solu-Medrol (12/01/21 13:42) Throat Culture (12/01/21 14:20) Cta Chest (12/01/21 14:48) Vital Signs Date Time Temp Pulse Resp B/P (MAP) Pulse Ox O2 Delivery O2 Flow Rate FiO2 12/01/21 14:14 93 22 107/63 (78) 99 Nasal Cannula* 3 32 12/01/21 13:29 96 Nasal Cannula* 3 32 12/01/21 13:29 122 25 98 Nasal Cannula* 3 32 12/01/21 13:29 123 22 98 Nasal Cannula* 3 32 12/01/21 12:40 99.3 133 22 76 12/01/21 12:40 99.3 133 22 12/01/21 12:40 99.3 133 22 114/76 (89) 76 Room Air* 0 21 Administered Medications Medications (Trade) Dose Ordered Sig/Emily Route PRN Reason Start Time Stop Time Status Last Admin Dose Admin Aspirin (Aspirin) 325 mg DAILY PRN PO CHEST PAIN 12/01/21 13:00 12/31/21 12:59 12/01/21 12:52 325 MG Cefepime HCl 2 gm/ Sodium Chloride 100 ml @ 100 mls/hr OT ONCE IV 12/01/21 13:30 12/01/21 14:29 DC 12/01/21 13:48 100 MLS/HR Levalbuterol HCl (Xopenex) 1.25 mg RTTID IH 12/01/21 15:00 12/31/21 14:59 12/01/21 13:32 1.25 MG Methylprednisolone Sodium Succinate (Solu-Medrol) 40 mg STAT STAT IV 12/01/21 13:19 12/01/21 13:22 DC 12/01/21 13:47 40 MG Sodium Chloride 1,225 ml @ 612.5 mls/ hr OT IV 12/01/21 13:30 12/31/21 13:29 12/01/21 13:48 612.5 MLS/HR Laboratory Tests Test 12/01/21 12:34 12/01/21 12:40 12/01/21 13:24 12/01/21 13:50 White Blood Count 19.2 10^3/uL (4.5-11.0) H Red Blood Count 3.78 10^6/uL (4.50-5.90) L Hemoglobin 11.4 g/dL (13.9-16.3) L Hematocrit 39.5 % (37.0-53.0) Mean Corpuscular Volume 104.5 fL (78-100) H Mean Corpuscular Hemoglobin 30.2 pg (26-34) Mean Corpuscular Hemoglobin Concent 28.9 g/dL (33-36.5) L Red Cell Distribution Width 13.5 % (11.5-14.5) Platelet Count 349 10^3/uL (150-400) Mean Platelet Volume 8.7 fL (7.8-11.0) Neutrophils (%) (Auto) 82.0 % (41.0-85.0) Lymphocytes (%) (Auto) 8.6 % (24.0-44.0) L Monocytes (%) (Auto) 8.8 % (5.0-12.0) Neutrophils # (Auto) 15.8 10^3/uL (1.8-7.7) H Lymphocytes # (Auto) 1.66 10^3/uL1 (1.0-4.8) Monocytes # (Auto) 1.7 10^3/uL (0.3-0.8) H Absolute Immature Granulocyte (auto 0.07 10^3 u/L (0-2) Absolute Eosinophils (auto) 0.0 10^3/uL (0.0-0.2) Immature Granulocytes % 0.40 % (0.00-0.50) Eosinophils % 0.1 % (0.0-5.0) Basophils % 0.1 % (0.0-0.2) Basophils # 0.0 10^3/uL (0.0-0.1) Hypochromasia 1+ (NEGATIVE) Blood Morphology Comment NORMAL MORPHOLOGY Prothrombin Time 11.1 SEC (9.1-11.5) Prothrombin Time INR (Non-Therap) 1.1 Activated Partial Thromboplast Time 25.9 SEC (22.5-33.1) D-Dimer 2.07 mg/L (0.19-0.49) *H Sodium Level 138 mmol/L (132-145) Potassium Level 4.2 mmol/L (3.6-5.2) Chloride Level 97.0 mmol/L (96-109) Carbon Dioxide Level 38.1 mmol/L (20.0-32) H Anion Gap 7.1 Blood Urea Nitrogen 10 mg/dL (7-18) Creatinine 0.66 mg/dL (0.59-1.40) Estimated GFR () 149.5 (>/=60) Est GFR (CKD-EPI)(Non-Afr Guinean) 123.5 (>/=60) BUN/Creatinine Ratio 15.0 Glucose Level 152 mg/dL (70-110) H Calcium Level 9.8 mg/dL (8.4-10.5) Total Bilirubin 0.4 mg/dL (0.2-1.0) Aspartate Amino Transferase (AST) 43 U/L (0-35) H Alanine Aminotransferase (ALT) 52 U/L (12-78) Alkaline Phosphatase 119 U/L (50-136) Total Creatine Kinase 13 U/L (39-308) L Creatine Kinase MB 0.5 ng/mL (0.5-3.6) Troponin I High Sensitivity 9 ng/L (0-75) Pro-B-Type Natriuretic Peptide 682 pg/mL (0-125) H Total Protein 7.6 g/dL (6.4-8.2) Albumin 2.2 g/dL (3.4-5.0) L Globulin 5.4 Albumin/Globulin Ratio 0.407 Procalcitonin 0.09 ng/mL (0.05-0.5) Valproic Acid Level 10 ug/mL (50-100) L Serum Alcohol < 3 mg/dL (0-50) Influenza Type A Antigen NEGATIVE (NEG) Influenza Type B Antigen NEGATIVE (NEG) SARS-CoV-2 Antigen (Rapid) NEGATIVE (NEGATIVE) Lactic Acid Level 0.5 mmol/L (0.5-1.9) Blood Gas Sample Site LEFT RADIAL ARTERY Blood pH 7.489 (7.350-7.450) Blood Gas PCO2 51.7 mmHg (35.0-45.0) H Blood Gas PO2 72.2 mmHg (80.0-100.0) L Blood Gas HCO3 38.4 mmol/L (22.0-26.0) H Blood Gas Base Excess 13.2 mmol/L (-2.0-2.0) H Anderson Test POSITIVE Arterial Blood Oxygen Saturation 95.3 % (94.0-97.00) Deoxyhemoglobin 4.7 % (0.0-5.0) Carboxyhemoglobin 0.3 % (0.0-3.9) Methemoglobin 0.3 % (0.00-5.0) Total Hemoglobin 11.6 % (12.0-17.8) L Total Oxygen Concentration 15.5 % (13.5-17.5) FiO2 32 % (20-101) Total Carbon Dioxide 40.0 mmol/L (23-27) H Progress Progress Pt has improved with fluids, O2, and antibiotics, and I had been minded to admit for inpatient antibiotics prior to the finding of lung abscess. I have conferred with our hospitalist, who has recommended for transfer to higher level facility given the abscess. I concur; we will do so. Dr. Tiago Allen accepts via his call center team. EKG/XRAY/CT/US EKG: rhythm (sinus tach rate 131), RBBB, no ST T wave changes EKG Comments: LPFB XRAY: chest XRAY Comments: overt RUL pneumonia CT Comments: Also has a RUL abscess #2 EKG: RBBB EKG Comments: Sinus tach appropriate T waves good RWP no ST elev/dep LAFB RBBB ER DEPART Departure Time of Disposition: 16:14 Disposition: 02 SHORT TERM HOSPITAL Impression: Primary Impression: Acute pneumonia Additional Impressions: Lung abscess COPD with exacerbation Hypoxemia Sepsis Condition: Improved Referrals: LAURY WILKINS STAPLE SHEAR OPERATOR (PCP) PRIMARY CARE PROVIDER Duration or Time Spent with Pa: 45 Critical Care Note Total Time (mins): 45 Problem Qualifiers MIHCAEL LEAL MD Dec 01, 2021 12:37
[2021-12-01 12:40] VITALS: BP 114/76
--- NOTE | 2021-12-01 12:47 | PCM.EKG ---
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
[2021-12-01] MEDS ORDERED: ASPIRIN ONE (12:51)
[2021-12-01 12:52] LABS: BASOPHIL % 0.1 % (0.0-0.2); EOSINOPHIL % 0.1 % (0.0-5.0); LYMPHOCYTES # 1.66 10^3/uL1 (1.0-4.8); LYMPHOCYTES % 8.6 % (24.0-44.0); MEAN CORP HGB 30.2 pg (26-34); MONOCYTES # 1.7 10^3/uL (0.3-0.8); MONOCYTES % 8.8 % (5.0-12.0); NEUTROPHIL # 15.8 10^3/uL (1.8-7.7); PLATELET COUNT 349 10^3/uL (150-400); RED CELL DISTRIBUTION WIDTH 13.5 % (11.5-14.5)
--- NOTE | 2021-12-01 12:58 | DIREP ---
PROCEDURE:CHEST 1 VIEW COMPARISON:[facility], CR, XRAY CHEST 2 VWS, 06/17/2020, 04:04 PM. INDICATIONS:dyspnea FINDINGS: LUNGS/PLEURA:Right upper lobe airspace consolidation. The remaining lungs are clear. VASCULATURE:Normal. Unremarkable pulmonary vasculature. CARDIAC:Normal. No cardiac silhouette abnormality or cardiomegaly. MEDIASTINUM:Calcified aorta. BONES:Mild degenerative changes. OTHER:Negative. CONCLUSION:Right upper lobe airspace consolidation consistent with pneumonia proper clinical setting. Dictated by: Shoaib Chan M.D. on 12/01/2021 at 12:56 PM
[2021-12-01] MEDS ORDERED: ASPIRIN PO PRN (13:00)
--- NOTE | 2021-12-01 13:01 | NUR ---
CRITICAL LAB NOTIFIED ELVIS OF D DIMER 2.07
[2021-12-01 13:10] LABS: CARBON DIOXIDE 38.1 mmol/L (20.0-32)
[2021-12-01] MEDS ORDERED: SOLU-MEDROL IV STA (13:19)
[2021-12-01] MEDS ORDERED: XOPENEX IH ONE (13:24)
[2021-12-01] MEDS ORDERED: MAXIPIME 2 GM in NS 100ML 100 ML IV ONE (13:30)
[2021-12-01] MEDS ORDERED: NS IV SCH (13:30)
[2021-12-01] MEDS ORDERED: VANCOMYCIN 1.25 GM/250 ML BAG 250 ML IV SCH (13:30)
[2021-12-01] MEDS ORDERED: NS 1000ML 1,000 ML ONE (13:41)
[2021-12-01] MEDS ORDERED: SOLU-MEDROL ONE (13:42)
[2021-12-01 14:04] LABS: ABG PCO2 51.7 mmHg (35.0-45.0); ABG PH 7.489 (7.350-7.450); BE(B) 13.2 mmol/L (-2.0-2.0); HCO3act 38.4 mmol/L (22.0-26.0); pO2 72.2 mmHg (80.0-100.0)
[2021-12-01 14:14] VITALS: BP 107/63
--- NOTE | 2021-12-01 14:23 | NUR ---
HOSPITALIST VOICEMAIL EDP TRIED TO PHONE HOSPITALIST TO DISCUSS NEED FOR POSSIBLE ADMISSION. LEFT VOICEMAIL TO RETURN CALL TO ED.
--- NOTE | 2021-12-01 14:42 | NUR ---
HOSPITALIST EDP ON PHONE WITH DR ASHLEY TO DISCUSS NEED FOR ADMISSION.
--- NOTE | 2021-12-01 14:45 | NUR ---
HOSPITALIST EDP ON PHONE WITH HOSPITALIST TO DISCUSS NEED FOR ADMISSION. HOSPITALIST REQUESTS CTA BEFORE HE WILL LOOK AT ACCEPTING PT.
[2021-12-01] MEDS ORDERED: XOPENEX IH SCH (15:00)
--- NOTE | 2021-12-01 15:48 | DIREP ---
PROCEDURE:CTA CHEST COMPARISON:[facility], CT, CTA CHEST, 11/08/2019, 10:46 PM. INDICATIONS:chest pain elevated d-dimer TECHNIQUE:Post contrast axial images through the chest with multiplanar MIP/3D reconstructions. FINDINGS: PULMONARY ARTERIES:Patent. LUNGS:Centrilobular emphysema. Dense consolidation throughout the entirety of the right upper lobe with central mixed air-fluid collection compatible with abscess measuring approximately 3.9 x 3.8 x 2.6 cm. Remainder of the bilateral lungs is clear. PLEURA:Normal. CARDIAC:Normal size heart and normal pulmonary vascularity. RV:LV ratio (norm <0.9): Not applicable in the absence of pulmonary embolism. THORACIC AORTA:Normal. MEDIASTINUM:Enlarged upper peritracheal and right hilar lymph nodes, felt to be reactive. THYROID:Normal. BONES:Normal. OTHER:No additional findings. CONCLUSION: 1. Dense consolidation involving the entirety of the right upper lobe. 2. Pulmonary abscess within the right upper lobe 3. No pulmonary embolus 4. Likely reactive enlarged right hilar and upper peritracheal lymph nodes Dictated by: Riley Hull DO on 12/01/2021 at 03:42 PM
--- NOTE | 2021-12-01 16:02 | NUR ---
HOSPITALIST EDP ON PHONE WITH HOSPITALIST TO DISCUSS RESULTS OF CTA.
--- NOTE | 2021-12-01 16:06 | NUR ---
[facility] EDP ON PHONE WITH [facility] TO DISCUSS NEED FOR TRANSFER.
--- NOTE | 2021-12-01 16:08 | NUR ---
[facility] ACCEPTING ER TO ER TRANSFER [facility] ER FOR DR FERRER @[id number] AOD GISELL COLLINS RN
--- NOTE | 2021-12-01 16:26 | NUR ---
DISPATCH DISPATCH CALLED FOR NEED OF EMS FOR TRANSFER FROM ED#3 TO [facility] ER.
[2021-12-01 16:27] VITALS: BP 106/71
== END 2021-12-01 16:45 | disposition short-term general hospital (02) ==
LOC: ER 12:23
DX: A41.9 Sepsis, unspecified organism (principal); Z20.822 Contact with and (suspected) exposure to COVID-19; F31.9 Bipolar disorder, unspecified; J18.9 Pneumonia, unspecified organism; J85.2 Abscess of lung without pneumonia; J44.1 Chronic obstructive pulmonary disease with (acute) exacerbation; R41.0 Disorientation, unspecified; R09.02 Hypoxemia; R06.00 Dyspnea, unspecified; Z90.49 Acquired absence of other specified parts of digestive tract
CPT/HCPCS: 99291; 96365; 71275; 71045; 96366; 87426; 96375; 96368; 80053; 85025; 36415; 85379; 84484; 87040 ×2; 83605; 84145; 87804 ×2; 82553; 82077; 83880; 82550; 85610; 85730; 80164; 93005; 82803; 36600; J0692; J7030; J2920; Q9965